=== PATIENT | female | born 1995 | race Caucasian/White ===

== ENCOUNTER 2017-11-02 10:44 | Emergency (ER) | payer SELFPAY ==
[~2017-11-02] VITALS: Ht 160 cm; Wt 108.9 kg
--- NOTE | 2017-11-02 12:34 | ED GI ---
General Chief Complaint: Rect Problems Stated Complaint: PASSING BLOOD IN STOOL,PT HAS IUD Nursing Triage Note: pt reports she had bright red bleeding from rectum last night at 2100. now has low abd discomfort. Sepsis Screen: No Definite Risk Source of Information: Patient, Other Exam Limitations: No Limitations History of Present Illness Date Seen by Provider: Nov 02, 2017 Time Seen by Provider: 12:24 Initial Comments Patient resents to ER by private conveyance with her significant other and chief complaint that since about 9:00 last night she started experiencing bright red blood clots from her rectum. She says it's not giving her vagina. Last missed her period was 2 weeks ago. She says she is having some pain in the rectum as well as her low back and her bilateral lower abdomen which she associates with her ovaries. She's not having any discharge or dysuria. She's not on any medications. She's had 2 C-sections but no other abdominal surgeries. She denies a history of hemorrhoids but she has chronic constipation. Allergies and Home Medications Allergies Coded Allergies: No Known Drug Allergies (Unverified , 11/02/17) Patient Home Medication List Home Medication List Reviewed: Yes Review of Systems Review of Systems Constitutional: No chills, No diaphoresis EENTM: No Blurred Vision, No Double Vision Respiratory: Denies Cough, Denies Shortness of Air Cardiovascular: Denies Chest Pain, Denies Edema Gastrointestinal: Denies Abdomen Distended; Abdominal Pain; Denies Constipated , Denies Diarrhea, Denies Nausea Genitourinary: Denies Burning, Denies Discharge, Denies Flank Pain Musculoskeletal: back pain; No joint pain Past Pfrzolw-Kdtnta-Kteyfq Hx Patient Social History Alcohol Use: Denies Use Recreational Drug Use: No Smoking Status: Current Everyday Smoker Type Used: Cigarettes (0.25 ppd) Recent Foreign Travel: No Contact w/Someone Who Travel: No Recent Infectious Disease Expo: No Physical Exam Vital Signs Vital Signs - First Documented 11/02/17 11:14 Temp 98.0 Pulse 49 Resp 16 B/P (MAP) 154/74 (100) Pulse Ox 97 Capillary Refill : Less Than 3 Seconds Height/Weight/BMI Height: 5'3.00" Weight: 240lbs. oz. 108.937894do; BMI Method:Stated General Appearance: WD/WN, no apparent distress HEENT: PERRL/EOMI, pharynx normal Respiratory: normal breath sounds, no respiratory distress, no accessory muscle use Cardiovascular: normal peripheral pulses, regular rate, rhythm Gastrointestinal: normal bowel sounds, soft, tenderness (bilateral lower quadrants are tender to palpation), other (. Negative for mesenteric signs or Blount's sign) Rectal: normal rectal tone; No blood streaked stool, No hemorrhoids, No mass; tenderness, other (12:00 thin, mild fissure) Extremities: normal inspection, normal capillary refill Back: normal inspection, no CVA tenderness, vertebral tenderness (lumbar midline tenderness to palpation) Neurologic/Psychiatric: alert, oriented x 3 Skin: normal color, warm/dry Progress/Results/Core Measures Results/Orders Lab Results Laboratory Tests Test 11/02/17 11:35 Range/Units Urine Color YELLOW Urine Clarity SLIGHTLY CLOUDY Urine pH 5 5-9 Urine Specific [place] 1.020 1.016-1.022 Urine Protein 2+ H NEGATIVE Urine Glucose (UA) NEGATIVE NEGATIVE Urine Ketones NEGATIVE NEGATIVE Urine Nitrite NEGATIVE NEGATIVE Urine Bilirubin NEGATIVE NEGATIVE Urine Urobilinogen NORMAL NORMAL MG/DL Urine Leukocyte Esterase 1+ H NEGATIVE Urine RBC (Auto) NEGATIVE NEGATIVE Urine RBC NONE /HPF Urine WBC 2-5 /HPF Urine Squamous Epithelial Cells 10-25 H /HPF Urine Crystals NONE /LPF Urine Bacteria FEW H /HPF Urine Casts NONE /LPF Urine Mucus LARGE H /LPF Urine Culture Indicated YES Urine Test NEGATIVE NEGATIVE My Orders Orders - MONIE CHAVIS Ua Culture If Indicated (11/02/17 12:29) Hcg,Qualitative Urine (11/02/17 12:29) Urine Culture (11/02/17 11:35) Vital Signs/I&O 11/02/17 11:14 Temp 98.0 Pulse 49 Resp 16 B/P (MAP) 154/74 (100) Pulse Ox 97 Blood Pressure Mean: 100 Urine -Bedside: Negative Departure Impression Primary Impression: Rectal fissure Disposition: 01 HOME, SELF-CARE Condition: Stable Departure-Patient Inst. Decision time for Depature: 13:39 Referrals: NO,LOCAL PHYSICIAN (PCP/Family) Primary Care Physician Patient Instructions: Anal Fissure (DC) Add. Discharge Instructions: Increase the fiber in your diet by either eating high-fiber foods or using Metamucil or other similar supplements. Use Colace for stool softening and MiraLAX as needed for constipation. For your pain you can use sitz baths as well as apply a small amount of the lidocaine cream to the rectum for relief every 2 hours as needed. Follow-up in the next 2-4 weeks with a primary care doctor to reassess the blood in the stool. If you can't get your symptoms under control you can follow- up sooner. All discharge instructions reviewed with patient and/or family. Voiced understanding. Scripts Docusate Sodium (Colace) 100 Mg Capsule 100 MG PO DAILY for 30 Days, #30 CAP 0 Refills Prov: MONIE CHAVIS 11/02/17 Psyllium Husk (Metamucil) 660 Gm Powder 660 GM PO DAILY for 30 Days, #1 EA Prov: MONIE CHAVIS 11/02/17 Lidocaine (Recticare) 15 Gm Cream..g. 1 GM TP Q4H PRN for PAIN-BREAKTHROUGH for 7 Days, #1 TUBE 0 Refills Prov: MONIE CHAVIS 11/02/17 MONIE CHAVIS Nov 02, 2017 12:34
[2017-11-02 12:37] LABS: BILIRUBIN,URINE NEGATIVE (NEGATIVE); CLARITY,URINE SLIGHTLY CLOUDY; COLOR,URINE YELLOW; GLUCOSE, URINE (UA) NEGATIVE (NEGATIVE); KETONES,URINE NEGATIVE (NEGATIVE); LEUKOCYTE ESTERASE ,URINE 1+ (NEGATIVE); NITRITE,URINE NEGATIVE (NEGATIVE); PH,URINE 5 (5-9); PROTEIN,URINE 2+ (NEGATIVE); UROBILINOGEN,URINE NORMAL (NORMAL)
[2017-11-02 12:49] LABS: BACTERIA,URINE FEW /HPF
[2017-11-02] MEDS ORDERED: PSYL660P17 PO (13:44)
[2017-11-02] MEDS ORDERED: LIDO15CR6 TP (13:44)
[2017-11-02] MEDS ORDERED: DOCU-143 PO (13:45)
[2017-11-02 14:15] VITALS: BP 150/78
== END 2017-11-02 14:16 | disposition home or self-care (01) ==
LOC: EDUNIT# 10:44 → ER 10:46
DX: K60.2 Anal fissure, unspecified (principal); F17.210 Nicotine dependence, cigarettes, uncomplicated; Z98.890 Other specified postprocedural states
CPT/HCPCS: 81000; 84703; 87088

== ENCOUNTER → 2018-01-12 | Outpatient (CLI) | payer OTHER ==
[~2018-01-12] MED LIST: DOCU-143 PO; LIDO15CR6 TP; PSYL660P17 PO
== END ==
LOC: CARD 11:04
PROVIDERS: ATTEND Nurse Practitioner Family
DX: R07.9 Chest pain, unspecified (principal); R06.02 Shortness of breath; R00.2 Palpitations; R00.1 Bradycardia, unspecified
CPT/HCPCS: 93225; 93226

== ENCOUNTER 2018-02-11 15:00 | Outpatient (CLI) | payer OTHER | END 2018-02-11 15:30 | disposition home or self-care (01) | LOC: SLEEP 15:00 | PROVIDERS: ATTEND Nurse Practitioner Family | DX: G47.10 Hypersomnia, unspecified (principal); R00.1 Bradycardia, unspecified; E66.01 Morbid (severe) obesity due to excess calories ==

== ENCOUNTER → 2018-02-20 | Outpatient (CLI) | payer OTHER ==
[~2018-02-20] MED LIST changes: +RT-ALBUTEROL SULF 2.5 MG/3 ML PRE-MIX VIAL INH ONE
== END ==
LOC: RT 12:55
PROVIDERS: ATTEND Nurse Practitioner Family
DX: G47.10 Hypersomnia, unspecified (principal); R00.2 Palpitations; E66.01 Morbid (severe) obesity due to excess calories
CPT/HCPCS: 94060; 94726; 94729

== ENCOUNTER 2018-07-10 12:34 | Emergency (ER) | payer SELFPAY ==
[~2018-07-10] VITALS: Ht 157.5 cm; Wt 115.7 kg
[~2018-07-10 12:34] MED LIST changes: -RT-ALBUTEROL SULF 2.5 MG/3 ML PRE-MIX VIAL INH ONE
--- OUTSIDE RECORDS SUMMARY | 2018-07-10 12:38 | XMS REPORT ---
Author Author JEFERSON RIGGS [facility] Address [address] [place] [address] Care Team Providers Care Event Promotions Coordinator Name Role Phone KIM RIGGSTA Unavailable PROBLEMS Type Condition ICD9-CM Code [id number]-[id number] Code Onset Dates Condition Status SNOMED Code Problem Tension headache G44.209 Active 710046035 Problem Major depressive disorder, recurrent episode, moderate F33.1 Active 121479492 Problem Dysthymia F34.1 Active 06062994 ALLERGIES No Known Allergies ENCOUNTERS Encounter Location Date Diagnosis [facility] [id number] [place] [phone] Mar, [facility] [address] [address] Feb, [facility] [id number] [place] [phone] Jan, [facility] [id number] [place] [phone] Jan, [facility] [id number] [place] [phone] Dec, BMI 40.0-44.9, adult Z68.41 and Tension headache G44.209 [facility] [id number] [place] [phone] Dec, [facility] [address] [address] 19 Dec, 2017 Major depressive disorder, recurrent episode, moderate F33.1 [facility] [id number] [place] [phone] 14 Dec, 2017 Chest pain, unspecified type R07.9 ; Shortness of breath R06.02 ; Heart palpitations R00.2 ; Sinus bradycardia R00.1 and BMI 40.0-44.9, adult Z68.41 [place] [address] [address] Dec, Major depressive disorder, recurrent episode, moderate F33.1 [place] [address] [id number] Nov, Major depressive disorder, recurrent episode, moderate F33.1 [place] [address] [address] Nov, Dysthymia F34.1 [place] [address] [address] Nov, Pelvic pain R10.2 ; Encounter for Depo-Provera contraception Z30.42 and BMI 40.0-44.9, adult Z68.41 [place] [address] [address] 26 Oct, 2017 Rash R21 and BMI 40.0-44.9, adult Z68.41 [place] [address] [address] 24 Oct, 2017 Major depressive disorder, recurrent episode, moderate F33.1 [place] [address] [address] Oct, Major depressive disorder, recurrent episode, moderate F33.1 [place] [address] [address] 18 Oct, 2017 Bradycardia R00.1 ; Dysthymia F34.1 ; Screening for STD (sexually transmitted disease) Z11.3 and BMI 40.0-44.9, adult Z68.41 IMMUNIZATIONS No Known Immunizations SOCIAL HISTORY Never Assessed REASON FOR VISIT Headache/ dizzines x3 weeks Darian Blunt MA PLAN OF CARE Activity Details Follow Up 4 Weeks if not better Reason:headaches VITAL SIGNS Height 62.75 in 2018-01-21 Weight 237.1 lbs 2018-01-21 Temperature 97.9 degrees Fahrenheit 2018-01-21 Heart Rate 62 bpm 2018-01-21 Respiratory Rate 18 2018-01-21 BMI 42.33 kg/m2 2018-01-21 Blood pressure systolic 122 mmHg 2018-01-21 Blood pressure diastolic 68 mmHg 2018-01-21 MEDICATIONS Medication Instructions Dosage Frequency Start Date End Date Duration Status Excedrin Migraine 250-250-65 MG Orally Once a day 2 tablets 24h 30 day(s) Active Prozac 20 mg Orally Once a day 1 capsule 24h 30 Active Naproxen 500 mg Orally every 12 hrs 1 tablet with food or milk as needed 12h Dec, Active Promethazine HCl 25 MG Orally every 12 hrs 1 tablet as needed 12h Dec, Active RESULTS No Results PROCEDURES No Known procedures INSTRUCTIONS MEDICATIONS ADMINISTERED No Known Medications MEDICAL (GENERAL) HISTORY Type Description Date Medical History Bradycardia Medical History Depression, unspecified depression type Medical History Stress Medical History Aortic valve defect Surgical History section x2 (2015 & 2016) Surgical History plates and screws in LT arm. 2015 Hospitalization History childbirth Hospitalization History surgery
--- OUTSIDE RECORDS SUMMARY | 2018-07-10 12:38 | XMS REPORT ---
Author Author STONEY WORRELL [facility] Address [address] [place] [address] Care Team Providers Care Roofing Tile Sorter Name Role Phone STONEY WORRELL Unavailable PROBLEMS Type Condition ICD9-CM Code [id number] Code Onset Dates Condition Status SNOMED Code Problem Tension headache G44.209 Active 133468326 Problem Major depressive disorder, recurrent episode, moderate F33.1 Active 816336416 Problem Dysthymia F34.1 Active 01734847 ALLERGIES No Information ENCOUNTERS Encounter Location Date Diagnosis [place] [id number] [place] [phone] Mar, [facility] [place] [address] [address] Feb, [facility] [place] [id number] [place] [phone] Jan, [facility] [place] [id number] [place] [address] Jan, Major depressive disorder, recurrent episode, moderate F33.1 [facility] [place] [id number] [place] [address] Dec, BMI 40.0-44.9, adult Z68.41 and Tension headache G44.209 [facility] [place] [id number] [place] [address] Dec, [facility] [place] [address] [address] Dec, Major depressive disorder, recurrent episode, moderate F33.1 [place] [id number] [place] [address] 14 Nov, 2018 Chest pain, unspecified type R07.9 ; Shortness of breath R06.02 ; Heart palpitations R00.2 ; Sinus bradycardia R00.1 and BMI 40.0-44.9, adult Z68.41 [place] [id number] [place] [phone] Dec, Major depressive disorder, recurrent episode, moderate F33.1 [place] [address] [address] Nov, Major depressive disorder, recurrent episode, moderate F33.1 [place] [address] [address] Nov, Dysthymia F34.1 [place] [address] [address] 08 Nov, 2017 Pelvic pain R10.2 ; Encounter for Depo-Provera contraception Z30.42 and BMI 40.0-44.9, adult Z68.41 [place] [id number] [place] [address] 26 Oct, 2017 Rash R21 and BMI 40.0-44.9, adult Z68.41 [place] [id number] [place] [address] 24 Oct, 2017 Major depressive disorder, recurrent episode, moderate F33.1 [place] [id number] [place] [address] Oct, Major depressive disorder, recurrent episode, moderate F33.1 [place] [id number] [place] [address] 18 Oct, 2017 Bradycardia R00.1 ; Dysthymia F34.1 ; Screening for STD (sexually transmitted disease) Z11.3 and BMI 40.0-44.9, adult Z68.41 IMMUNIZATIONS No Known Immunizations SOCIAL HISTORY Never Assessed REASON FOR VISIT f/u PLAN OF CARE Activity Details Follow Up 2 Weeks Reason: F/U VITAL SIGNS MEDICATIONS Unknown Medications RESULTS No Results PROCEDURES Procedure Date Ordered Result Body Site Psychotherapy, patient and family, 45 minutes, established patient Jan 26, 2018 INSTRUCTIONS MEDICATIONS ADMINISTERED No Known Medications MEDICAL (GENERAL) HISTORY Type Description Date Medical History Bradycardia Medical History Depression, unspecified depression type Medical History Stress Medical History Aortic valve defect Surgical History section x2 (2015 & 2016) Surgical History plates and screws in LT arm. 2015 Hospitalization History childbirth Hospitalization History surgery
--- OUTSIDE RECORDS SUMMARY | 2018-07-10 12:38 | XMS REPORT ---
Author Author JEFERSON RIGGS [facility] Address [address] [place] [address] Care Team Providers Care Mechanical Pencils Assembler Name Role Phone KIM RIGGSTA Unavailable PROBLEMS Type Condition ICD9-CM Code FHA39-RB Code Onset Dates Condition Status SNOMED Code Problem Tension headache G44.209 Active 879667194 Problem Major depressive disorder, recurrent episode, moderate F33.1 Active 963845273 Problem Dysthymia F34.1 Active 75907858 ALLERGIES No Information ENCOUNTERS Encounter Location Date Diagnosis [facility] [place] [address] [address] Mar, [facility] [place] [address] [address] Feb, [facility] [place] [id number] [place] [address] Jan, [facility] [place] [address] [address] Jan, [facility] [place] [id number] [place] [address] Dec, BMI 40.0-44.9, adult Z68.41 and Tension headache G44.209 [facility] [place] [id number] [place] [address] Dec, [facility] [place] [address] [address] 19 Dec, 2017 Major depressive disorder, recurrent episode, moderate F33.1 [facility] [place] [id number] [place] [address] 14 Dec, 2017 Chest pain, unspecified type R07.9 ; Shortness of breath R06.02 ; Heart palpitations R00.2 ; Sinus bradycardia R00.1 and BMI 40.0-44.9, adult Z68.41 [place] [address] [address] Dec, Major depressive disorder, recurrent episode, moderate F33.1 [place] [address] [address] Nov, Major depressive disorder, recurrent episode, moderate F33.1 [place] [address] [address] Nov, Dysthymia F34.1 [place] [address] [phone] 08 Nov, 2017 Pelvic pain R10.2 ; Encounter for Depo-Provera contraception Z30.42 and BMI 40.0-44.9, adult Z68.41 [place] [address] [address] 26 Oct, 2017 Rash R21 and BMI 40.0-44.9, adult Z68.41 [place] [address] [address] 24 Oct, 2017 Major depressive disorder, recurrent episode, moderate F33.1 [place] [address] [address] 19 Oct, 2017 Major depressive disorder, recurrent episode, moderate F33.1 [place] [address] [address] 18 Oct, 2017 Bradycardia R00.1 ; Dysthymia F34.1 ; Screening for STD (sexually transmitted disease) Z11.3 and BMI 40.0-44.9, adult Z68.41 IMMUNIZATIONS No Known Immunizations SOCIAL HISTORY Never Assessed REASON FOR VISIT PALS IN-Prozac PLAN OF CARE VITAL SIGNS MEDICATIONS Unknown Medications RESULTS No Results PROCEDURES No Known procedures [...]
--- OUTSIDE RECORDS SUMMARY | 2018-07-10 12:39 | XMS REPORT ---
Author Author STONEY WORRELL [facility] Address [address] [place] [address] Care Team Providers Care Lodge Attendant Name Role Phone STONEY WORRELL Unavailable PROBLEMS Type Condition ICD9-CM Code HPS46-YA Code Onset Dates Condition Status SNOMED Code Problem Major depressive disorder, recurrent episode, moderate F33.1 Active 894496507 Problem Dysthymia F34.1 Active 69000998 ALLERGIES No Information ENCOUNTERS Encounter Location Date Diagnosis [place] [address] [address] Mar, [facility] [address] [address] Feb, [facility] [address] [address] Jan, [place] [address] [address] Jan, [place] [address] [address] Dec, [facility] [address] [address] Dec, Major depressive disorder, recurrent episode, moderate F33.1 [facility] [address] [address] 14 Dec, 2017 Chest pain, unspecified type R07.9 ; Shortness of breath R06.02 ; Heart palpitations R00.2 ; Sinus bradycardia R00.1 and BMI 40.0-44.9, adult Z68.41 [place] [address] [address] Dec, Major depressive disorder, recurrent episode, moderate F33.1 [place] [address] [address] Nov, Major depressive disorder, recurrent episode, moderate F33.1 [place] [id number] [place] [address] Nov, Dysthymia F34.1 [place] [address] [address] 08 Nov, 2017 Pelvic pain R10.2 ; Encounter for Depo-Provera contraception Z30.42 and BMI 40.0-44.9, adult Z68.41 [place] [id number] [place], [place] [address] 26 Oct, 2017 Rash R21 and BMI 40.0-44.9, adult Z68.41 [place] [id number] [place] [address] 24 Oct, 2017 Major depressive disorder, recurrent episode, moderate F33.1 [place] [id number] [place] [address] Oct, Major depressive disorder, recurrent episode, moderate F33.1 [place] [address] [place] [address] 18 Oct, 2017 Bradycardia R00.1 ; Dysthymia F34.1 ; Screening for STD (sexually transmitted disease) Z11.3 and BMI 40.0-44.9, adult Z68.41 IMMUNIZATIONS No Known Immunizations SOCIAL HISTORY Never Assessed REASON FOR VISIT BH f/u PLAN OF CARE Activity Details Follow Up 2 Weeks Reason: F/U VITAL SIGNS MEDICATIONS Unknown Medications RESULTS No Results PROCEDURES Procedure Date Ordered Result Body Site Psychotherapy, patient &/family, 45 minutes, established patient Jan 12, 2018 INSTRUCTIONS MEDICATIONS ADMINISTERED No Known Medications MEDICAL (GENERAL) HISTORY Type Description Date Medical History Bradycardia Medical History Depression, unspecified depression type Medical History Stress Medical History Aortic valve defect Surgical History section x2 (2015 & 2017) Surgical History plates and screws in LT arm. 2015 Hospitalization History childbirth Hospitalization History surgery
--- OUTSIDE RECORDS SUMMARY | 2018-07-10 12:39 | XMS REPORT ---
Author Author JEFERSON RIGGS [facility] Address [address] [place] [address] Care Team Providers Care Restaurant Manager Name Role Phone JEFERSON RIGGS Unavailable PROBLEMS Type Condition ICD9-CM Code VTZ54-PD Code Onset Dates Condition Status SNOMED Code Problem Major depressive disorder, recurrent episode, moderate F33.1 Active 016485332 Problem Dysthymia F34.1 Active 83297203 ALLERGIES No Known Allergies ENCOUNTERS Encounter Location Date Diagnosis [facility] [id number] [place] [phone] Dec, [facility] [address] [address] Dec, [facility] [id number] [place] [address] Dec, [facility] [address] [address] Nov, [facility] [id number] [place] [address] Nov, [facility] [id number] [place] [address] Oct, Rash R21 and BMI 40.0-44.9, adult Z68.41 [facility] [id number] [place] [address] Oct, Major depressive disorder, recurrent episode, moderate F33.1 [facility] [id number] [place] [address] Oct, Major depressive disorder, recurrent episode, moderate F33.1 [facility] [id number] [place] [address] Oct, Bradycardia R00.1 ; Dysthymia F34.1 ; Screening for STD (sexually transmitted disease) Z11.3 and BMI 40.0-44.9, adult Z68.41 IMMUNIZATIONS No Known Immunizations SOCIAL HISTORY Never Assessed REASON FOR VISIT Rash from Medication/Noticed a rash on neck and back 2 days after starting proza c-[facility] DATA SECURITY CONSULTANT/STRUCTURES ASSEMBLER PLAN OF CARE Activity Details Follow Up prn Reason: VITAL SIGNS Height 62.75 in 2017-11-19 Weight 239 lbs 2017-11-19 Temperature 98 degrees Fahrenheit 2017-11-19 Heart Rate 82 bpm 2017-11-19 Respiratory Rate 20 2017-11-19 BMI 42.67 kg/m2 2017-11-19 Blood pressure systolic 120 mmHg 2017-11-19 Blood pressure diastolic 74 mmHg 2017-11-19 MEDICATIONS Medication Instructions Dosage Frequency Start Date End Date Duration Status Prozac 20 mg Orally Once a day 1 capsule 24h Oct, 30 day(s) Active RESULTS No Results PROCEDURES No Known [...]
--- OUTSIDE RECORDS SUMMARY | 2018-07-10 12:39 | XMS REPORT ---
Author Author STONEY WORRELL [facility] Address [address] [place] [address] Care Team Providers Care Thermite Welder Name Role Phone STONEY WORRELL Unavailable PROBLEMS Type Condition ICD9-CM Code MIN00-SE Code Onset Dates Condition Status SNOMED Code Problem Major depressive disorder, recurrent episode, moderate F33.1 Active 768872021 Problem Dysthymia F34.1 Active 06492909 ALLERGIES No Information ENCOUNTERS Encounter Location Date Diagnosis [facility] [id number] [place] [phone] Jan, [facility] [address] [address] Jan, [facility] [id number] [place] [phone] Dec, [facility] [address] [address] Dec, [facility] [id number] [place] [address] Dec, Major depressive disorder, recurrent episode, moderate F33.1 [facility] [id number] [place] [address] Nov, Major depressive disorder, recurrent episode, moderate F33.1 [facility] [address] [address] Nov, Dysthymia F34.1 [facility] [id number] [place] [address] Nov, Pelvic pain R10.2 ; Encounter for Depo-Provera contraception Z30.42 and BMI 40.0-44.9, adult Z68.41 [place] [id number] [address] 26 Oct, 2017 Rash R21 and BMI 40.0-44.9, adult Z68.41 [place] [address] [address] 24 Oct, 2017 Major depressive disorder, recurrent episode, moderate F33.1 [place] [address] [place] [address] 19 Oct, 2017 Major depressive disorder, recurrent episode, moderate F33.1 [place] [address] [place] [address] 18 Oct, 2017 Bradycardia R00.1 ; Dysthymia [...] Psychotherapy, patient &/family, 45 minutes, established patient Dec 29, 2017 INSTRUCTIONS MEDICATIONS ADMINISTERED No Known Medications MEDICAL (GENERAL) HISTORY Type Description Date Medical History Bradycardia Medical History Depression, unspecified depression type Medical History Stress Medical History Aortic valve defect Surgical History section x2 (2015 & 2016) Surgical History plates and screws in LT arm. 2015 Hospitalization History childbirth Hospitalization History surgery
--- OUTSIDE RECORDS SUMMARY | 2018-07-10 12:39 | XMS REPORT ---
Author Author JEFERSON RIGGS [facility] Address [address] [place] [address] Care Team Providers Care It Architecture Analyst Name Role Phone JEFERSON RIGGS Unavailable PROBLEMS ALLERGIES No Known Allergies ENCOUNTERS IMMUNIZATIONS No Known Immunizations SOCIAL HISTORY No smoking Hx information available REASON FOR VISIT PLAN OF CARE VITAL SIGNS MEDICATIONS RESULTS No Results PROCEDURES INSTRUCTIONS MEDICATIONS ADMINISTERED No Known Medications MEDICAL (GENERAL) HISTORY
--- OUTSIDE RECORDS SUMMARY | 2018-07-10 12:39 | XMS REPORT ---
Author Author STONEY WORRELL [facility] Address [address] [place] [address] Care Team Providers Care Correctional Officer Chief Name Role Phone STONEY WORRELL Unavailable PROBLEMS ALLERGIES No Information ENCOUNTERS IMMUNIZATIONS No Known Immunizations SOCIAL HISTORY No smoking Hx information available REASON FOR VISIT PLAN OF CARE VITAL SIGNS MEDICATIONS Unknown Medications RESULTS No Results PROCEDURES INSTRUCTIONS MEDICATIONS ADMINISTERED No Known Medications MEDICAL (GENERAL) HISTORY
--- OUTSIDE RECORDS SUMMARY | 2018-07-10 12:39 | XMS REPORT | Continuity of Care Document ---
Author Organization Unknown Address Unknown Allergies There is no data. Medications There is no data. Problems There is no data. Procedures There is no data. Results Test Result Range CBC - 11/11/17 11:34 WHITE BLOOD CELL COUNT 7.3 Thousand/uL 3.8-10.8 RED BLOOD CELL COUNT 5.18 Million/uL 3.80-5.10 HEMOGLOBIN 13.9 g/dL 11.7-15.5 HEMATOCRIT 43.0 % 35.0-45.0 MCV 83.0 fL 80.0-100.0 MCH 26.8 pg 27.0-33.0 MCHC 32.3 g/dL 32.0-36.0 RDW 14.9 % 11.0-15.0 PLATELET COUNT 336 Thousand/uL 140-400 MPV 9.9 fL 7.5-12.5 ABSOLUTE NEUTROPHILS 4329 cells/uL 4240-0870 ABSOLUTE LYMPHOCYTES 2329 cells/uL 850-3900 ABSOLUTE MONOCYTES 504 cells/uL 200-950 ABSOLUTE EOSINOPHILS 102 cells/uL 15-500 ABSOLUTE BASOPHILS 37 cells/uL 0-200 NEUTROPHILS 59.3 % NRG LYMPHOCYTES 31.9 % NRG MONOCYTES 6.9 % NRG EOSINOPHILS 1.4 % NRG BASOPHILS 0.5 % NRG TSH - 11/11/17 11:34 TSH 1.69 mIU/L NRG Encounters ACCT No. Visit Date/Time Discharge Status Pt. Type Provider Facility Loc./Unit Complaint [id number] 06/16/2018 13:00:00 06/16/2018 23:59:59 CLS Outpatient JEFERSON RIGGS [facility] [id number] 11/11/2017 10:00:00 Document Registration
--- OUTSIDE RECORDS SUMMARY | 2018-07-10 12:39 | XMS REPORT ---
Author Author STONEY WORRELL [facility] Address [address] [place] [address] Care Team Providers Care Case Worker Name Role Phone STONEY WORRELL Unavailable PROBLEMS Type Condition ICD9-CM Code [id number] Code Onset Dates Condition Status SNOMED Code Problem Major depressive disorder, recurrent episode, moderate F33.1 Active 918766077 Problem Dysthymia F34.1 Active 52791279 ALLERGIES No Information ENCOUNTERS Encounter Location Date Diagnosis [facility] [id number] [place] [address] Dec, [facility] [address] [address] Dec, [facility] [id number] [place] [address] Dec, [facility] [address] [address] Nov, [facility] [id number] [place] [address] Nov, [facility] [id number] [place] [address] Oct, Rash R21 and BMI 40.0-44.9, [address] [facility] [id number] [place] [address] Oct, Major depressive disorder, recurrent episode, moderate F33.1 [facility] [id number] [place] [address] Oct, Major depressive disorder, recurrent episode, moderate F33.1 [facility] [id number] [place] [address] Oct, Bradycardia R00.1 ; Dysthymia F34.1 ; Screening for STD (sexually transmitted disease) Z11.3 and BMI 40.0-44.9, adult Z68.41 IMMUNIZATIONS No Known Immunizations SOCIAL HISTORY Never Assessed REASON FOR VISIT intake PLAN OF CARE Activity Details Follow Up Next Available Reason: F/U VITAL SIGNS MEDICATIONS Medication Instructions Dosage Frequency Start Date End Date Duration Status Prozac 20 mg Orally Once a day 1 capsule 24h Oct, 30 day(s) Active RESULTS No Results PROCEDURES Procedure Date Ordered Result Body Site Psych diagnostic evaluation, established patient Nov 12, 2017 INSTRUCTIONS MEDICATIONS ADMINISTERED No Known Medications MEDICAL (GENERAL) HISTORY Type Description Date Medical History Bradycardia Medical History Depression, unspecified depression type Medical History Stress Medical History Aortic valve defect Surgical History section x2 (2015 & 2016) Surgical History plates and screws in LT arm. 2015 Hospitalization History childbirth Hospitalization History surgery
--- OUTSIDE RECORDS SUMMARY | 2018-07-10 12:39 | XMS REPORT ---
Author Author KING JEFERSON [facility] Address [address] [place] [address] Care Team Providers Care Bed Setter Name Role Phone JEFERSON RIGGS Unavailable PROBLEMS Type Condition ICD9-CM Code [id number] Code Onset Dates Condition Status SNOMED Code Problem Major depressive disorder, recurrent episode, moderate F33.1 Active 178217375 Problem Dysthymia F34.1 Active 36629232 ALLERGIES No Information ENCOUNTERS Encounter Location Date Diagnosis [place] [address] [address] Dec, [place] [address] [address] Dec, [facility] [address] [address] Dec, [facility] [address] [address] Nov, [place] [address] [id number] [place] [address] Nov, Dysthymia F34.1 [facility] [address] [address] 08 Nov, 2017 Pelvic pain R10.2 ; Encounter for Depo-Provera contraception Z30.42 and BMI 40.0-44.9, adult Z68.41 [facility] [address] [address] 26 Oct, 2017 Rash R21 and BMI 40.0-44.9, adult Z68.41 [facility] [address] [address] 24 Oct, 2017 Major depressive disorder, recurrent episode, moderate F33.1 [facility] [address] [facility] [id number] [place] [address] Oct, Major depressive disorder, recurrent episode, moderate F33.1 [facility] [address] [facility] [id number] [place] [address] Oct, Bradycardia R00.1 ; Dysthymia F34.1 ; Screening for STD (sexually transmitted disease) Z11.3 and BMI 40.0-44.9, adult Z68.41 IMMUNIZATIONS No Known Immunizations SOCIAL HISTORY Never Assessed REASON FOR VISIT PALS PLAN OF CARE VITAL SIGNS MEDICATIONS Medication Instructions Dosage Frequency Start Date End Date Duration Status Prozac 20 mg Orally Once a day 1 capsule 24h Oct, 90 days Active RESULTS No Results PROCEDURES No Known [...]
--- OUTSIDE RECORDS SUMMARY | 2018-07-10 12:39 | XMS REPORT ---
Author Author STONEY WORRELL [facility] Address [address] [place] [address] Care Team Providers Care Superintendent Transportation Name Role Phone STONEY WORRELL Unavailable PROBLEMS Type Condition ICD9-CM Code [id number] Code Onset Dates Condition Status SNOMED Code Problem Major depressive disorder, recurrent episode, moderate F33.1 Active 230720997 Problem Dysthymia F34.1 Active 29768629 ALLERGIES No Information ENCOUNTERS Encounter Location Date Diagnosis [place] [id number] [place] [address] Jan, [place] [address] [address] Jan, [facility] [id number] [place] [address] Dec, [facility] [address] [address] Dec, [place] [id number] [place] [address] Dec, [facility] [address] [address] Nov, Major depressive disorder, recurrent episode, moderate F33.1 [facility] [id number] [place] [address] Nov, Dysthymia F34.1 [place] [id number] [place] [address] 08 Nov, 2017 Pelvic pain R10.2 ; Encounter for Depo-Provera contraception Z30.42 and BMI 40.0-44.9, adult Z68.41 [place] [address], [place] [address] 26 Oct, 2017 Rash R21 and BMI 40.0-44.9, adult Z68.41 [place] [id number] [address] 24 Oct, 2017 Major depressive disorder, recurrent episode, moderate F33.1 [place] [address] [place] [address] 19 Oct, 2017 Major depressive disorder, recurrent episode, moderate F33.1 [place] [id number] [address] 18 Oct, 2017 Bradycardia R00.1 ; Dysthymia [...] patient &/family, 45 minutes, established patient Dec 15, 2017 INSTRUCTIONS MEDICATIONS ADMINISTERED No Known Medications MEDICAL (GENERAL) HISTORY Type Description Date Medical History Bradycardia Medical History Depression, unspecified depression type Medical History Stress Medical History Aortic valve defect Surgical History section x2 (2015 & 2016) Surgical History plates and screws in LT arm. 2015 Hospitalization History childbirth Hospitalization History surgery
--- OUTSIDE RECORDS SUMMARY | 2018-07-10 12:39 | XMS REPORT ---
Author Author JACLYN RO [facility] Address [address] [place] [address] Care Team Providers Care Numerical Control Router Operator Name Role Phone JACLYN RO Unavailable PROBLEMS Type Condition ICD9-CM Code [id number] Code Onset Dates Condition Status SNOMED Code Problem Major depressive disorder, recurrent episode, moderate F33.1 Active 106487864 Problem Dysthymia F34.1 Active 81552123 ALLERGIES No Known Allergies ENCOUNTERS Encounter Location Date Diagnosis [place] [id number] [address] Mar, [place] [address] [address] Jan, [place] [address] [address] Jan, [place] [address] [address] Dec, [place] [id number] [place] [address] Dec, [place] [address] [address] 14 Dec, 2017 Chest pain, unspecified type R07.9 ; Shortness of breath R06.02 ; Heart palpitations R00.2 ; Sinus bradycardia R00.1 and BMI 40.0-44.9, adult Z68.41 [place] [address] [address] 05 Dec, 2017 Major depressive disorder, recurrent episode, moderate F33.1 [place] [address] [address] Nov, Major depressive disorder, recurrent episode, moderate F33.1 [place] [address] [place] [address] Nov, Dysthymia F34.1 [place] [id number] [place] [address] 08 Nov, 2017 Pelvic pain R10.2 ; Encounter for Depo-Provera contraception Z30.42 and BMI 40.0-44.9, adult Z68.41 [place] [id number] [place] [address] 26 Oct, 2017 Rash R21 and BMI 40.0-44.9, adult Z68.41 [place] [address] [place] [address] [address] 24 Oct, 2017 Major depressive disorder, recurrent episode, moderate F33.1 [place] [address] [address] 19 Oct, 2017 Major depressive disorder, recurrent episode, moderate F33.1 [place] [id number] [place] [address] 18 Oct, 2017 Bradycardia R00.1 ; Dysthymia F34.1 ; Screening for STD (sexually transmitted disease) Z11.3 and BMI 40.0-44.9, adult Z68.41 IMMUNIZATIONS No Known Immunizations SOCIAL HISTORY Never Assessed REASON FOR VISIT Bradycardia (last seen Cardiology 11 years ago) PLAN OF CARE Activity Details Follow Up 3 Months Reason: Pending Test Holter Test Pending Test Stress Echo Pending Test Echo 2D VITAL SIGNS Height 62.75 in 2018-01-07 Weight 238 lbs 2018-01-07 Heart Rate 46 bpm 2018-01-07 Respiratory Rate 18 2018-01-07 Oximetry 98 % 2018-01-07 BMI 42.49 kg/m2 2018-01-07 Blood pressure systolic 122 mmHg 2018-01-07 Blood pressure diastolic 74 mmHg 2018-01-07 MEDICATIONS Medication Instructions Dosage Frequency Start Date End Date Duration Status Prozac 20 mg Orally Once a day 1 capsule 24h 30 Active RESULTS No Results PROCEDURES No Known [...]
--- OUTSIDE RECORDS SUMMARY | 2018-07-10 12:39 | XMS REPORT ---
Author Author SHAMEKA MIDDLETON [facility] Address [address] [place] [address] Care Team Providers Care Riding Double Name Role Phone SHAMEKA MIDDLETON Unavailable PROBLEMS Type Condition ICD9-CM Code [id number] Code Onset Dates Condition Status SNOMED Code Problem Major depressive disorder, recurrent episode, moderate F33.1 Active 776101860 Problem Dysthymia F34.1 Active 59583660 ALLERGIES No Known Allergies ENCOUNTERS Encounter Location Date Diagnosis [place] [id number] [address] Dec, [facility] [address] [address] Dec, [facility] [address] [address] Dec, [place] [address] [address] Nov, [place] [id number] [place] [address] Nov, Dysthymia F34.1 [place] [address] [address] 08 Nov, 2017 Pelvic pain R10.2 ; Encounter for Depo-Provera contraception Z30.42 and BMI 40.0-44.9, adult Z68.41 [facility] [address] [address] 26 Oct, 2017 Rash R21 and BMI 40.0-44.9, adult Z68.41 [place] [address] [address] Oct, Major depressive disorder, recurrent episode, moderate F33.1 [facility] [address] [facility] [id number] [place] [address] 19 Oct, 2017 Major depressive disorder, recurrent episode, moderate F33.1 [facility] [address] [facility] [id number] [place] [address] 18 Oct, 2017 Bradycardia R00.1 ; Dysthymia F34.1 ; Screening for STD (sexually transmitted disease) Z11.3 and BMI 40.0-44.9, adult Z68.41 IMMUNIZATIONS Vaccine Route Administration Date Status DEPO PROVERA (150 MG/ML) IM Intramuscular Dec 01, 2017 Administered SOCIAL HISTORY Never Assessed REASON FOR VISIT IUD Removal(Mirena)-----DBennettRN, would like to talk about other control , interested in tubal, difficulty affording PLAN OF CARE Activity Details Follow Up 3 months/1 year Reason:BC Future/Pending Procedure IUD REMOVAL VITAL SIGNS Height 62.75 in 2017-12-01 Weight 238 lbs 2017-12-01 Temperature 98.0 degrees Fahrenheit 2017-12-01 Heart Rate 70 bpm 2017-12-01 Respiratory Rate 20 2017-12-01 BMI 42.49 kg/m2 2017-12-01 Blood pressure systolic 112 mmHg 2017-12-01 Blood pressure diastolic 72 mmHg 2017-12-01 MEDICATIONS Medication Instructions Dosage Frequency Start Date End Date Duration Status Prozac 20 mg Orally Once a day 1 capsule 24h Oct, 30 day(s) Active RESULTS Name Result Date Reference Range TEST, URINE (IN HOUSE) 2017-12-01 RESULTS Neg Lot # [id number] Control + Exp date 05/2019 PROCEDURES Procedure Date Ordered Result Body Site URINE TEST Dec 01, 2017 DEPO PROVERA (150 MG/ML) Dec 01, 2017 REMOVE INTRAUTERINE DEVICE Dec 01, 2017 THER/PROPH/DIAG INJ, SC/IM Dec 01, 2017 INSTRUCTIONS MEDICATIONS ADMINISTERED No Known Medications MEDICAL (GENERAL) HISTORY Type Description Date Medical History Bradycardia Medical History Depression, unspecified depression type Medical History Stress Medical History Aortic valve defect Surgical History section x2 (2015 & 2017) Surgical History plates and screws in LT arm. 2015 Hospitalization History childbirth Hospitalization History surgery
[2018-07-10] MEDS ORDERED: fentaNYL INJECTION 100 MCG/2 ML AMP IVP ONE (14:00)
[2018-07-10 14:08] LABS: BILIRUBIN,URINE NEGATIVE (NEGATIVE); CLARITY,URINE CLEAR; COLOR,URINE YELLOW; GLUCOSE, URINE (UA) NEGATIVE (NEGATIVE); KETONES,URINE NEGATIVE (NEGATIVE); LEUKOCYTE ESTERASE ,URINE 1+ (NEGATIVE); NITRITE,URINE NEGATIVE (NEGATIVE); PH,URINE 5 (5-9); PROTEIN,URINE 1+ (NEGATIVE); UROBILINOGEN,URINE NORMAL (NORMAL)
[2018-07-10 14:21] LABS: BACTERIA,URINE NEGATIVE /HPF; WBC,URINE RARE /HPF
[2018-07-10 14:27] LABS: BASOPHILS % (AUTO) 0 % (0-10); EOSINOPHILS # (AUTO) 0.1 10^3/uL (0.0-0.3); EOSINOPHILS % (AUTO) 1 % (0-10); HEMATOCRIT 41 % (35-52); HEMOGLOBIN 14.2 G/DL (11.5-16.0); LYMPHOCYTES # (AUTO) 2.8 X 10^3 (1.0-4.0); LYMPHOCYTES % (AUTO) 35 % (12-44); MEAN CORPUSCULAR HEMOGLOBIN 28 PG (25-34); MEAN CORPUSCULAR HGB CONC 35 G/DL (32-36); MEAN CORPUSCULAR VOLUME 81 FL (80-99); MEAN PLATELET VOLUME 9.5 FL (7.4-10.4); MONOCYTES # (AUTO) 0.7 X 10^3 (0.0-1.0); MONOCYTES % (AUTO) 9 % (0-12); NEUTROPHILS # (AUTO) 4.4 X 10^3 (1.8-7.8); NEUTROPHILS % (AUTO) 55 % (42-75); PLATELET COUNT 328 10^3/uL (130-400); RED CELL DISTRIBUTION WIDTH 13.8 % (10.0-14.5); WHITE BLOOD COUNT 8.1 10^3/uL (4.3-11.0)
--- NOTE | 2018-07-10 14:32 | ED Back Pain ---
General Chief Complaint: Back Problems Stated Complaint: LOWER BACK PAIN Nursing Triage Note: Ambulatory to triage. Pt reports middle and lower back pain that began on Friday. Pt denies injury. Pt denies taking anything for pain and has not seen PCP. Pt c/o urinary frequency and constipation. Nursing Sepsis Screen: No Definite Risk Source of Information: Patient, Family Exam Limitations: No Limitations History of Present Illness Date Seen by Provider: July 10, 2018 Time Seen by Provider: 14:22 Initial Comments This 22-year-old white female presents complaining of severe back pain that began in the evening 3 days ago. The patient denies trauma to the area. There is no associated dysuria, frequency, hematuria, nausea or vomiting, diarrhea or constipation, fever or chills, associated cough or shortness of breath, chest pain or palpitations, or similar episodes in the past. Patient's a female. Allergies and Home Medications Allergies Coded Allergies: No Known Drug Allergies (Unverified , 11/02/17) Patient Home Medication List Home Medication List Reviewed: Yes Review of Systems Constitutional: No chills EENTM: No ear pain, No blurred vision Respiratory: No cough Cardiovascular: No chest pain Gastrointestinal: No abdominal pain, No melena, No nausea, No vomiting Genitourinary: No dysuria, No frequency : No Musculoskeletal: see HPI, back pain Skin: No change in color Psychiatric/Neurological: No Symptoms Reported All Other Systems Reviewed Negative Unless Noted: Yes Past Tvdggfz-Zitlbw-Qrlomf Hx Past Med/Social Hx: Reviewed Nursing Past Med/Soc Hx Patient Social History Alcohol Use: Rarely Uses Recreational Drug Use: No Smoking Status: Never a Smoker Type Used: Cigarettes 2nd Hand Smoke Exposure: No Recent Foreign Travel: No Contact w/Someone Who Travel: No Recent Infectious Disease Expo: No Recent Hopitalizations: No Seasonal Allergies Seasonal Allergies: No Past Medical History Surgeries: Yes Section, Orthopedic Respiratory: No Cardiac: Yes ( bradycardia) Headaches /Migraines Genitourinary: No Gastrointestinal: No Musculoskeletal: No Endocrine: No HEENT: No Cancer: No Psychosocial: Yes Anxiety, Depression Integumentary: No Blood Disorders: No Adverse Reaction/Blood Tranf: No Physical Exam Vital Signs Vital Signs - First Documented 07/10/18 12:47 Temp 98.2 Pulse 45 Resp 18 B/P (MAP) 138/81 (100) Pulse Ox 97 O2 Delivery Room Air Capillary Refill : Less Than 3 Seconds Height, Weight, BMI Height: 5'2.00" Weight: 255lbs. oz. 115.149966tz; BMI Method:Stated General Appearance: WD/WN, Mild Distress HEENT: Normal ENT Inspection Neck: Normal Inspection Cardiovascular: Regular Rate, Rhythm Respiratory: Chest Non Tender, Lungs Clear Gastrointestinal: Normal Bowel Sounds, Non Tender, Soft Back: Normal Inspection, No CVA Tenderness, Muscle Spasm (over the paravertebral muscles.) Extremity: No Calf Tenderness Neurologic/Psychiatric: Alert, Oriented x3, No Motor/Sensory Deficits, Normal Mood/Affect Skin: Normal Color, Warm/Dry Progress/Results/Core Measures Results/Orders Lab Results Laboratory Tests Test 07/10/18 12:57 07/10/18 14:20 Range/Units Urine Color YELLOW Urine Clarity CLEAR Urine pH 5 5-9 Urine Specific [place] 1.015 L 1.016-1.022 Urine Protein 1+ H NEGATIVE Urine Glucose (UA) NEGATIVE NEGATIVE Urine Ketones NEGATIVE NEGATIVE Urine Nitrite NEGATIVE NEGATIVE Urine Bilirubin NEGATIVE NEGATIVE Urine Urobilinogen NORMAL NORMAL MG/DL Urine Leukocyte Esterase 1+ H NEGATIVE Urine RBC (Auto) NEGATIVE NEGATIVE Urine RBC NONE /HPF Urine WBC RARE /HPF Urine Squamous Epithelial Cells 2-5 /HPF Urine Crystals NONE /LPF Urine Bacteria NEGATIVE /HPF Urine Casts NONE /LPF Urine Mucus NEGATIVE /LPF Urine Culture Indicated NO White Blood Count 8.1 4.3-11.0 10^3/uL Red Blood Count 5.04 4.35-5.85 10^6/uL Hemoglobin 14.2 11.5-16.0 G/DL Hematocrit 41 35-52 % Mean Corpuscular Volume 81 80-99 FL Mean Corpuscular Hemoglobin 28 25-34 PG Mean Corpuscular Hemoglobin Concent 35 32-36 G/DL Red Cell Distribution Width 13.8 10.0-14.5 % Platelet Count 328 130-400 10^3/uL Mean Platelet Volume 9.5 7.4-10.4 FL Neutrophils (%) (Auto) 55 42-75 % Lymphocytes (%) (Auto) 35 12-44 % Monocytes (%) (Auto) 9 0-12 % Eosinophils (%) (Auto) 1 0-10 % Basophils (%) (Auto) 0 0-10 % Neutrophils # (Auto) 4.4 1.8-7.8 X 10^3 Lymphocytes # (Auto) 2.8 1.0-4.0 X 10^3 Monocytes # (Auto) 0.7 0.0-1.0 X 10^3 Eosinophils # (Auto) 0.1 0.0-0.3 10^3/uL Basophils # (Auto) 0.0 0.0-0.1 10^3/uL Sodium Level 140 135-145 MMOL/L Potassium Level 3.2 L 3.6-5.0 MMOL/L Chloride Level 106 98-107 MMOL/L Carbon Dioxide Level 22 21-32 MMOL/L Anion Gap 12 5-14 MMOL/L Blood Urea Nitrogen 9 7-18 MG/DL Creatinine 0.69 0.60-1.30 MG/DL Estimat Glomerular Filtration Rate > 60 BUN/Creatinine Ratio 13 Glucose Level 88 70-105 MG/DL Calcium Level 9.3 8.5-10.1 MG/DL Corrected Calcium 9.1 8.5-10.1 MG/DL Total Bilirubin 0.3 0.1-1.0 MG/DL Aspartate Amino Transf (AST/SGOT) 20 5-34 U/L Alanine Aminotransferase (ALT/SGPT) 31 0-55 U/L Alkaline Phosphatase 63 40-136 U/L Total Protein 7.1 6.4-8.2 GM/DL Albumin 4.2 3.2-4.5 GM/DL Lipase 13 8-78 U/L My Orders Orders - DINORA AVINA MD Cbc With Automated Diff (07/10/18 13:54) Comprehensive Metabolic Panel (07/10/18 13:54) Ua Culture If Indicated (07/10/18 13:54) Fentanyl Injection (Sublimaze Injection (07/10/18 14:00) Lipase (07/10/18 13:56) Ct Lumbar Spine Wo (07/10/18 13:54) Medications Given in ED Current Medications Medications Dose Ordered Sig/Jana Route Start Time Stop Time Status Last Admin Dose Admin Fentanyl Citrate 50 mcg ONCE ONCE IVP 07/10/18 14:00 07/10/18 14:01 DC 07/10/18 14:38 50 MCG Vital Signs/I&O 07/10/18 12:47 Temp 98.2 Pulse 45 Resp 18 B/P (MAP) 138/81 (100) Pulse Ox 97 O2 Delivery Room Air Blood Pressure Mean: 100 Progress Progress Note : Time: 15:50 Progress Note The patient's CT of the lumbar spine, urinalysis, and CBC were all unremarkable. Patient was significantly improved with 50 g of fentanyl IV. Discussed the findings with the patient and she agreed to follow-up with her caregiver closely on Friday. I invited her to return to the emergency department if she had any further problems or questions. Departure Impression Primary Impression: Back pain Qualified Codes: M54.5 - Low back pain Disposition: HOME, SELF-CARE Condition: Improved Departure-Patient Inst. Decision time for Depature: 15:51 Referrals: [facility] (PCP) Primary Care Physician JEFERSON RIGGS APRN (Family) Primary Care Physician Patient Instructions: Low Back Pain (DC) Add. Discharge Instructions: Ultram and Flexeril for pain and spasm. Close follow-up with your healthcare or medical on Friday. Return if any problems or questions. All discharge instructions reviewed with patient and/or family. Voiced understanding. Scripts Cyclobenzaprine HCl (Cyclobenzaprine HCl) 10 Mg Tablet 10 MG PO Q8H PRN for SPASMS, #15 TAB 0 Refills Prov: DINORA AVINA MD 07/10/18 Tramadol HCl (Ultram) 50 Mg Tablet 50 MG PO Q4H PRN for PAIN-MODERATE, #20 TAB Prov: DINORA AVINA MD 07/10/18 DINORA AVINA MD July 10, 2018 14:32
[2018-07-10 14:47] LABS: ALANINE AMINOTRANSFERASE 31 U/L (0-55); ALBUMIN 4.2 GM/DL (3.2-4.5); ALKALINE PHOSPHATASE 63 U/L (40-136); BILIRUBIN,TOTAL 0.3 MG/DL (0.1-1.0); BUN/CREATININE RATIO 13; CALCIUM 9.3 MG/DL (8.5-10.1); CARBON DIOXIDE 22 MMOL/L (21-32); CHLORIDE 106 MMOL/L (98-107); CREATININE SERUM 0.69 MG/DL (0.60-1.30); GFR ESTIMATED > 60; GLUCOSE 88 MG/DL (70-105); LIPASE 13 U/L (8-78); POTASSIUM 3.2 MMOL/L (3.6-5.0); SODIUM 140 MMOL/L (135-145); TOTAL PROTEIN 7.1 GM/DL (6.4-8.2)
--- NOTE | 2018-07-10 14:57 | Diagnostic Imaging Report ---
PROCEDURE: CT lumbar spine without contrast. TECHNIQUE: Multiple contiguous axial images were obtained through the lumbar spine without the use of intravenous contrast. Sagittal and coronal reformations were then performed. Auto Exposure Controls were utilized during the CT exam to meet ALARA standards for radiation dose reduction. INDICATION: Middle and lower back pain beginning several days ago. No known injury. Urinary frequency and constipation. CORRELATION STUDY: None. FINDINGS: Very minimal leftward curvature of the superior to mid lumbar spine. Alignment is otherwise relatively anatomic. Transitional anatomy with lumbarization at the S1 level. Lumbar vertebral body heights are maintained. No high degree narrowing of the canal and/or foramina. [place] large disc protrusion does not appear to be suggested on CT imaging. No osseous narrowing of the spinal canal. Paraspinal soft tissues appear unremarkable. Visualized portion of the abdominal aorta as well as kidneys are unremarkable. IMPRESSION: Unremarkable examination of the lumbar spine. Dictated by: Dictated on workstation # [id number]
[2018-07-10] MEDS ORDERED: CYCL10TA9 PO (15:54)
[2018-07-10] MEDS ORDERED: TRAM-42 PO (15:54)
[2018-07-10 16:05] VITALS: BP 138/81
== END 2018-07-10 16:05 | disposition home or self-care (01) ==
LOC: EDUNIT# 12:34 → ER 12:35
DX: M54.5 Low back pain (principal); G43.909 Migraine, unspecified, not intractable, without status migrainosus; F32.9 Major depressive disorder, single episode, unspecified; F41.9 Anxiety disorder, unspecified; Z98.890 Other specified postprocedural states
CPT/HCPCS: 36415; 72131; 80053; 81000; 83690; 85025

== ENCOUNTER 2018-07-27 17:30 | Emergency (ER) | payer SELFPAY ==
[~2018-07-27] VITALS: Ht 157.5 cm; Wt 115.7 kg
[~2018-07-27 17:30] MED LIST changes: +CYCL10TA9 PO; +TRAM-42 PO
[2018-07-27] MEDS ORDERED: IBUPROFEN 800 MG (MOTRIN) TAB PO ONE (19:00)
--- NOTE | 2018-07-27 19:07 | Diagnostic Imaging Report ---
INDICATION: Fall with right knee pain. AP, oblique, and lateral views of the right knee are obtained. FINDINGS: No fracture or acute bony abnormality is seen. There is no joint effusion. There is no significant degenerative change. IMPRESSION: Negative right knee. Dictated by: Dictated on workstation # [id number]
--- NOTE | 2018-07-27 19:16 | ED Lower Extremity ---
General Chief Complaint: Lower Extremity Stated Complaint: R KNEE PAIN Nursing Triage Note: Pt amb to triage with c/o rt knee pain for approx 4-5 months. Pt reports increase in pain throughout this past week. Reports to have fallen approx 4-5 months ago and has been experiencing discomfort since. Reports increase in discomfort behind knee cap when bending knee. Pt noted to be wearing brace to rt knee. Nursing Sepsis Screen: No Definite Risk Source: patient Exam Limitations: no limitations History of Present Illness Date Seen by Provider: Jul 27, 2018 Time Seen by Provider: 19:00 Allergies and Home Medications Allergies Coded Allergies: No Known Drug Allergies (Unverified , 11/02/17) Home Medications Cyclobenzaprine HCl 10 Mg Tablet, 10 MG PO Q8H PRN for SPASMS Prescribed by: DINORA AVINA MD on 07/10/18 1554 Tramadol HCl 50 Mg Tablet, 50 MG PO Q4H PRN for PAIN-MODERATE Prescribed by: DINORA AVINA MD on 07/10/18 1554 Past Kasjtgo-Tlgchu-Aovsqw Hx Patient Social History Alcohol Use: Denies Use Recreational Drug Use: No Smoking Status: Never a Smoker Type Used: Cigarettes 2nd Hand Smoke Exposure: No Recent Foreign Travel: No Contact w/Someone Who Travel: No Recent Infectious Disease Expo: No Recent Hopitalizations: No Seasonal Allergies Seasonal Allergies: No Past Medical History Surgeries: Yes Section, Orthopedic Respiratory: No Cardiac: Yes ( bradycardia) Headaches /Migraines Genitourinary: No Gastrointestinal: No Musculoskeletal: No Endocrine: No HEENT: No Cancer: No Psychosocial: Yes Anxiety, Depression Integumentary: No Blood Disorders: No Adverse Reaction/Blood Tranf: No Physical Exam Vital Signs Vital Signs - First Documented 07/27/18 18:23 Temp 98.2 Pulse 60 Resp 19 B/P (MAP) 139/66 (90) Pulse Ox 96 O2 Delivery Room Air Capillary Refill : Less Than 3 Seconds Height, Weight, BMI Height: 5'2.00" Weight: 255lbs. oz. 115.076564mx; BMI Method:Stated Progress/Results/Core Measures Results/Orders My Orders Orders - HALIMA BRADLEY Ibuprofen Tablet (Motrin Tablet) (07/27/18 19:00) Knee, Right, 3 Views (07/27/18 18:49) Medications Given in ED Current Medications Medications Dose Ordered Sig/Jana Route Start Time Stop Time Status Last Admin Dose Admin Ibuprofen 800 mg ONCE ONCE PO 07/27/18 19:00 07/27/18 19:01 DC 07/27/18 19:09 800 MG Vital Signs/I&O 07/27/18 18:23 Temp 98.2 Pulse 60 Resp 19 B/P (MAP) 139/66 (90) Pulse Ox 96 O2 Delivery Room Air Blood Pressure Mean: 90 Departure Impression Primary Impression: Knee pain Qualified Codes: M25.561 - Pain in right knee Disposition: HOME, SELF-CARE Condition: Stable/Unchanged Departure-Patient Inst. Decision time for Depature: 19:24 Referrals: [facility] (PCP) Primary Care Physician JEFERSON RIGGS APRN (Family) Primary Care Physician Patient Instructions: Knee Sprain (DC) Add. Discharge Instructions: Follow-up with your primary care provider within 1 week for further evaluation of your knee pain. You may use ibuprofen and Tylenol as directed by the bottle for pain relief. Wear the Zuhair bandage as needed for comfort. Ice to the sore areas at 20 minute intervals. Return back to the emergency room for worsening symptoms or concerns as needed. All discharge instructions reviewed with patient and/or family. Voiced understanding. Work/School Note: Work Release Form Date Seen in the Emergency Department: Jul 27, 2018 Return to Work: Jul 28, 2018 Restrictions: No Restrictions HALIMA BRADLEY Jul 27, 2018 19:16
[2018-07-27 19:48] VITALS: BP 139/66
--- OUTSIDE RECORDS SUMMARY | 2018-07-27 23:16 | XMS REPORT | Continuity of Care Document ---
Author Organization Unknown Address Unknown Allergies Active Description Code Type Severity Reaction Onset Reported/Identified Relationship to Patient Clinical Status Yes No Known Drug Allergies [id number] Drug Allergy Unknown N/A 11/02/2017 Medications There is no data. Problems Date Dx Coded Attending Type Code Diagnosis Diagnosed By 11/02/2017 MONIE CHAVIS MD Ot F17.210 NICOTINE DEPENDENCE, CIGARETTES, UNCOMPL 11/02/2017 MONIE CHAVIS MD Ot K60.2 ANAL FISSURE, UNSPECIFIED 11/02/2017 MONIE CHAVIS MD Ot K62.5 HEMORRHAGE OF ANUS AND RECTUM 11/02/2017 MONIE CHAVIS MD Ot Z98.890 OTHER SPECIFIED POSTPROCEDURAL STATES 11/04/2017 MONIE CHAVIS MD Ot F17.210 NICOTINE DEPENDENCE, CIGARETTES, UNCOMPL 11/04/2017 MONIE CHAVIS MD Ot K60.2 ANAL FISSURE, UNSPECIFIED 11/04/2017 MONIE CHAVIS MD Ot K62.5 HEMORRHAGE OF ANUS AND RECTUM 11/04/2017 MONIE CHAVIS MD Ot Z98.890 OTHER SPECIFIED POSTPROCEDURAL STATES 01/13/2018 BAIMA, JACLYN L MEDICAL APPLIANCE MAKER Ot R00.1 BRADYCARDIA, UNSPECIFIED 01/13/2018 BAIMA, JACLYN L MEDICAL APPLIANCE MAKER Ot R00.2 PALPITATIONS 01/13/2018 BAIMA, JACLYN L MEDICAL APPLIANCE MAKER Ot R06.02 SHORTNESS OF BREATH 01/13/2018 BAIMA, JACLYN L MEDICAL APPLIANCE MAKER Ot R07.9 CHEST PAIN, UNSPECIFIED 02/11/2018 IRMA JON APRN Ot E66.01 MORBID (SEVERE) OBESITY DUE TO EXCESS CA 02/11/2018 IRMA JON APRN Ot G47.10 HYPERSOMNIA, UNSPECIFIED 02/11/2018 IRMA JON APRN Ot R00.1 BRADYCARDIA, UNSPECIFIED 02/20/2018 BAIMA, JACLYN L MEDICAL APPLIANCE MAKER Ot R00.1 BRADYCARDIA, UNSPECIFIED 02/20/2018 BAIMA, JACLYN L MEDICAL APPLIANCE MAKER Ot R00.2 PALPITATIONS 02/20/2018 BAIMA, JACLYN L MEDICAL APPLIANCE MAKER Ot R06.02 SHORTNESS OF BREATH 02/20/2018 BAIMA, JACLYN L MEDICAL APPLIANCE MAKER Ot R07.9 CHEST PAIN, UNSPECIFIED 02/23/2018 DONTRELL, IRMA E GUIDEMAN Ot E66.01 MORBID (SEVERE) OBESITY DUE TO EXCESS CA 02/23/2018 DONTRELL, IRMA E GUIDEMAN Ot G47.10 HYPERSOMNIA, UNSPECIFIED 02/23/2018 DONTRELL, IRMA E GUIDEMAN Ot R00.2 PALPITATIONS 02/26/2018 DONTRELL, IRMA E GUIDEMAN Ot E66.01 MORBID (SEVERE) OBESITY DUE TO EXCESS CA 02/26/2018 DONTRELL, IRMA E GUIDEMAN Ot G47.10 HYPERSOMNIA, UNSPECIFIED 02/26/2018 DONTRELL, IRMA E GUIDEMAN Ot R00.2 PALPITATIONS 02/26/2018 BAIMA, JACLYN L MEDICAL APPLIANCE MAKER Ot R00.1 BRADYCARDIA, UNSPECIFIED 02/26/2018 BAIMA, JACLYN L MEDICAL APPLIANCE MAKER Ot R00.2 PALPITATIONS 02/26/2018 BAIMA, JACLYN L MEDICAL APPLIANCE MAKER Ot R06.02 SHORTNESS OF BREATH 02/26/2018 BAIMA, JACLYN L MEDICAL APPLIANCE MAKER Ot R07.9 CHEST PAIN, UNSPECIFIED 02/26/2018 DONTRELL, IRMA E GUIDEMAN Ot E66.01 MORBID (SEVERE) OBESITY DUE TO EXCESS CA 02/26/2018 DONTRELL, IRMA E GUIDEMAN Ot G47.10 HYPERSOMNIA, UNSPECIFIED 02/26/2018 DONTRELL, IRMA E GUIDEMAN Ot R00.2 PALPITATIONS 02/26/2018 BAIMA, JACLYN L MEDICAL APPLIANCE MAKER Ot R00.1 BRADYCARDIA, UNSPECIFIED 02/26/2018 BAIMA, JACLYN L MEDICAL APPLIANCE MAKER Ot R00.2 PALPITATIONS 02/26/2018 BAIMA, JACLYN L MEDICAL APPLIANCE MAKER Ot R06.02 SHORTNESS OF BREATH 02/26/2018 BAIMA, JACLYN L MEDICAL APPLIANCE MAKER Ot R07.9 CHEST PAIN, UNSPECIFIED 02/26/2018 DONTRELL, IRMA E GUIDEMAN Ot E66.01 MORBID (SEVERE) OBESITY DUE TO EXCESS CA 02/26/2018 DONTRELL IRMA E GUIDEMAN Ot G47.10 HYPERSOMNIA, UNSPECIFIED 02/26/2018 DONTRELL IRMA Ekta GUIDEMAN Ot R00.2 PALPITATIONS 03/10/2018 BAIMA, JACLYN L MEDICAL APPLIANCE MAKER Ot R00.1 BRADYCARDIA, UNSPECIFIED 03/10/2018 BAIMA, JACLYN L MEDICAL APPLIANCE MAKER Ot R00.2 PALPITATIONS 03/10/2018 BAIMA, JACLYN L MEDICAL APPLIANCE MAKER Ot R06.02 SHORTNESS OF BREATH 03/10/2018 BAIMA, JACLYN L MEDICAL APPLIANCE MAKER Ot R07.9 CHEST PAIN, UNSPECIFIED 03/10/2018 TIMOTHY JONINE E GUIDEMAN Ot E66.01 MORBID (SEVERE) OBESITY DUE TO EXCESS CA 03/10/2018 IRMA JON E GUIDEMAN Ot G47.10 HYPERSOMNIA, UNSPECIFIED 03/10/2018 IRMA JON Ekta GUIDEMAN Ot R00.2 PALPITATIONS 07/10/2018 BAIMA, JACLYN L MEDICAL APPLIANCE MAKER Ot R00.1 BRADYCARDIA, UNSPECIFIED 07/10/2018 BAIMA, JACLYN L MEDICAL APPLIANCE MAKER Ot R00.2 PALPITATIONS 07/10/2018 BAIMA, JACLYN L MEDICAL APPLIANCE MAKER Ot R06.02 SHORTNESS OF BREATH 07/10/2018 BAIMA, JACLYN L MEDICAL APPLIANCE MAKER Ot R07.9 CHEST PAIN, UNSPECIFIED 07/10/2018 IRMA JON E GUIDEMAN Ot E66.01 MORBID (SEVERE) OBESITY DUE TO EXCESS CA 07/10/2018 IRMA JON GUIDEMAN Ot G47.10 HYPERSOMNIA, UNSPECIFIED 07/10/2018 IRMA JON GUIDEMAN Ot R00.2 PALPITATIONS 07/13/2018 KAILYN STAPLETON, DINORA Almanzar Ot F32.9 MAJOR DEPRESSIVE DISORDER, SINGLE EPISOD 07/13/2018 KAILYN STAPLETON, DINORA Almanzar Ot F41.9 ANXIETY DISORDER, UNSPECIFIED 07/13/2018 KAILYN STAPLETON, DINORA Almanzar Ot G43.909 MIGRAINE, UNSP, NOT INTRACTABLE, WITHOUT 07/13/2018 KAILYN STAPLETON, DINORA Almanzar Ot M54.5 LOW BACK PAIN 07/13/2018 KAILYN STAPLETON, DINORA Almanzar Ot Z98.890 OTHER SPECIFIED POSTPROCEDURAL STATES Procedures There is no data. Results Test Result Range Urine beta human chorionic gonadotropin (hCG) measurement - 11/02/17 11:35 Urine beta human chorionic gonadotropin (hCG) measurement NEGATIVE NEGATIVE Complete urinalysis with reflex to culture - 11/02/17 11:35 Urine color determination YELLOW NRG Urine clarity determination SLIGHTLY CLOUDY NRG Urine pH measurement by test strip 5 5-9 Specific gravity of urine by test strip 1.020 1.016-1.022 Urine protein assay by test strip, semi-quantitative 2+ NEGATIVE Urine glucose detection by automated test strip NEGATIVE NEGATIVE Erythrocytes detection in urine sediment by light microscopy NEGATIVE NEGATIVE Urine ketones detection by automated test strip NEGATIVE NEGATIVE Urine nitrite detection by test strip NEGATIVE NEGATIVE Urine total bilirubin detection by test strip NEGATIVE NEGATIVE Urine urobilinogen measurement by automated test strip (mass/volume) NORMAL NORMAL Urine leukocyte esterase detection by dipstick 1+ NEGATIVE Automated urine sediment erythrocyte count by microscopy (number/high power field) NONE NRG Automated urine sediment leukocyte count by microscopy (number/high power field) [HPF] NRG Bacteria detection in urine sediment by light microscopy FEW NRG Squamous epithelial cells detection in urine sediment by light microscopy 10-25 NRG Crystals detection in urine sediment by light microscopy NONE NRG Casts detection in urine sediment by light microscopy NONE NRG Mucus detection in urine sediment by light microscopy LARGE NRG Complete urinalysis with reflex to culture YES NRG Bacterial urine culture - 11/02/17 11:35 Bacterial urine culture SEE REPORT NRG COLONY COUNT . NRG CBC - 11/11/17 11:34 WHITE BLOOD CELL COUNT 7.3 Thousand/uL 3.8-10.8 RED BLOOD CELL COUNT 5.18 Million/uL 3.80-5.10 HEMOGLOBIN 13.9 g/dL 11.7-15.5 HEMATOCRIT 43.0 % 35.0-45.0 MCV 83.0 fL 80.0-100.0 MCH 26.8 pg 27.0-33.0 MCHC 32.3 g/dL 32.0-36.0 RDW 14.9 % 11.0-15.0 PLATELET COUNT 336 Thousand/uL 140-400 MPV 9.9 fL 7.5-12.5 ABSOLUTE NEUTROPHILS 4329 cells/uL 7152-1432 ABSOLUTE LYMPHOCYTES 2329 cells/uL 850-3900 ABSOLUTE MONOCYTES 504 cells/uL 200-950 ABSOLUTE EOSINOPHILS 102 cells/uL 15-500 ABSOLUTE BASOPHILS 37 cells/uL 0-200 NEUTROPHILS 59.3 % NRG LYMPHOCYTES 31.9 % NRG MONOCYTES 6.9 % NRG EOSINOPHILS 1.4 % NRG BASOPHILS 0.5 % NRG TSH - 11/11/17 11:34 TSH 1.69 mIU/L NRG Complete urinalysis with reflex to culture - 07/10/18 12:57 Urine color determination YELLOW NRG Urine clarity determination CLEAR NRG Urine pH measurement by test strip 5 5-9 Specific gravity of urine by test strip 1.015 1.016-1.022 Urine protein assay by test strip, semi-quantitative 1+ NEGATIVE Urine glucose detection by automated test strip NEGATIVE NEGATIVE Erythrocytes detection in urine sediment by light microscopy NEGATIVE NEGATIVE Urine ketones detection by automated test strip NEGATIVE NEGATIVE Urine nitrite detection by test strip NEGATIVE NEGATIVE Urine total bilirubin detection by test strip NEGATIVE NEGATIVE Urine urobilinogen measurement by automated test strip (mass/volume) NORMAL NORMAL Urine leukocyte esterase detection by dipstick 1+ NEGATIVE Automated urine sediment erythrocyte count by microscopy (number/high power field) NONE NRG Automated urine sediment leukocyte count by microscopy (number/high power field) RARE NRG Bacteria detection in urine sediment by light microscopy NEGATIVE NRG Squamous epithelial cells detection in urine sediment by light microscopy 2-5 NRG Crystals detection in urine sediment by light microscopy NONE NRG Casts detection in urine sediment by light microscopy NONE NRG Mucus detection in urine sediment by light microscopy NEGATIVE NRG Complete urinalysis with reflex to culture NO NRG Complete blood count (CBC) with automated white blood cell (WBC) differential - 07/10/18 14:20 Blood leukocytes automated count (number/volume) 8.1 10*3/uL 4.3-11.0 Blood erythrocytes automated count (number/volume) 5.04 10*6/uL 4.35-5.85 Venous blood hemoglobin measurement (mass/volume) 14.2 g/dL 11.5-16.0 Blood hematocrit (volume fraction) 41 % 35-52 Automated erythrocyte mean corpuscular volume 81 [foz_us] 80-99 Automated erythrocyte mean corpuscular hemoglobin (mass per erythrocyte) 28 pg 25-34 Automated erythrocyte mean corpuscular hemoglobin concentration measurement (mass/volume) 35 g/dL 32-36 Automated erythrocyte distribution width ratio 13.8 % 10.0- 14.5 Automated blood platelet count (count/volume) 328 10*3/uL 130-400 Automated blood platelet mean volume measurement 9.5 [foz_us] 7.4-10.4 Automated blood neutrophils/100 leukocytes 55 % 42-75 Automated blood lymphocytes/100 leukocytes 35 % 12-44 Blood monocytes/100 leukocytes 9 % 0-12 Automated blood eosinophils/100 leukocytes 1 % 0-10 Automated blood basophils/100 leukocytes 0 % 0-10 Blood neutrophils automated count (number/volume) 4.4 10*3 1.8-7.8 Blood lymphocytes automated count (number/volume) 2.8 10*3 1.0-4.0 Blood monocytes automated count (number/volume) 0.7 10*3 0.0- 1.0 Automated eosinophil count 0.1 10*3/uL 0.0-0.3 Automated blood basophil count (count/volume) 0.0 10*3/uL 0.0-0.1 Comprehensive metabolic panel - 07/10/18 14:20 Serum or plasma sodium measurement (moles/volume) 140 mmol/L 135-145 Serum or plasma potassium measurement (moles/volume) 3.2 mmol/L 3.6-5.0 Serum or plasma chloride measurement (moles/volume) 106 mmol/L 98-107 Carbon dioxide 22 mmol/L 21-32 Serum or plasma anion gap determination (moles/volume) 12 mmol/L 5-14 Serum or plasma urea nitrogen measurement (mass/volume) 9 mg/dL 7-18 Serum or plasma creatinine measurement (mass/volume) 0.69 mg/dL 0.60-1.30 Serum or plasma urea nitrogen/creatinine mass ratio 13 NRG Serum or plasma creatinine measurement with calculation of estimated glomerular filtration rate > NRG Serum or plasma glucose measurement (mass/volume) 88 mg/dL 70-105 Serum or plasma calcium measurement (mass/volume) 9.3 mg/dL 8.5-10.1 Serum or plasma total bilirubin measurement (mass/volume) 0.3 mg/dL 0.1-1.0 Serum or plasma alkaline phosphatase measurement (enzymatic activity/volume) 63 U/L 40-136 Serum or plasma aspartate aminotransferase measurement (enzymatic activity/volume) 20 U/L 5-34 Serum or plasma alanine aminotransferase measurement (enzymatic activity/volume) 31 U/L 0-55 Serum or plasma protein measurement (mass/volume) 7.1 g/dL 6.4-8.2 Serum or plasma albumin measurement (mass/volume) 4.2 g/dL 3.2-4.5 CALCIUM CORRECTED 9.1 mg/dL 8.5-10.1 Lipase - 07/10/18 14:20 Lipase 13 U/L 8-78 Encounters ACCT No. Visit Date/Time Discharge Status Pt. Type Provider Facility Loc./Unit Complaint [id number] 06/16/2018 13:00:00 06/16/2018 23:59:59 CLS Outpatient JEFERSON RIGGS [facility] [id number] 11/11/2017 10:00:00 Document Registration [id number] 07/27/2018 17:31:00 07/27/2018 19:48:00 DIS Emergency MIRNACARLINEIS [facility] ER R KNEE PAIN [id number] 07/10/2018 12:35:00 07/10/2018 16:05:00 DIS Outpatient KAILYN STAPLETON, DINORA Almanzar [facility] ER LOWER BACK PAIN [id number] 03/10/2018 13:00:00 03/10/2018 23:59:59 CLS Preadmit JACLYN ROP [facility] CARD CHEST PAIN,SOB,HEART PALPITATIONS [id number] 02/20/2018 12:55:00 02/20/2018 23:59:59 CLS Outpatient IRMA JON APRN [facility] RT RADIOLOGICAL TECHNICIAN DISORDER [id number] 02/11/2018 15:00:00 02/11/2018 15:30:00 DIS Outpatient IRMA JON APRN [facility] SLEEP HYPERSOMNIA, MORBID OBESITY [id number] 01/12/2018 11:00:00 01/12/2018 23:59:59 CLS Outpatient JACLYN ROP [facility] CARD CHEST PAIN,SOB,HEART PALPITATIONS [id number] 11/02/2017 10:46:00 11/02/2017 14:16:00 DIS Emergency PALMIRA STAPLETON, MONIE Peralta [facility] ER PASSING BLOOD IN STOOL,PT HAS IUD
== END 2018-07-27 19:48 | disposition home or self-care (01) ==
LOC: EDUNIT# 17:30 → ER 17:31
DX: M25.561 Pain in right knee (principal); F41.9 Anxiety disorder, unspecified; F32.9 Major depressive disorder, single episode, unspecified; G43.909 Migraine, unspecified, not intractable, without status migrainosus; Z98.890 Other specified postprocedural states
CPT/HCPCS: 73562

== ENCOUNTER 2019-03-24 18:04 | Emergency (ER) | payer SELFPAY ==
[~2019-03-24] VITALS: Ht 157 cm; Wt 118.0 kg
[2019-03-24 18:26] LABS: BASOPHILS % (AUTO) 0 % (0-10); EOSINOPHILS # (AUTO) 0.1 10^3/uL (0.0-0.3); EOSINOPHILS % (AUTO) 1 % (0-10); HEMATOCRIT 42 % (35-52); HEMOGLOBIN 14.7 G/DL (11.5-16.0); LYMPHOCYTES # (AUTO) 4.3 X 10^3 (1.0-4.0); LYMPHOCYTES % (AUTO) 57 % (12-44); MEAN CORPUSCULAR HEMOGLOBIN 30 PG (25-34); MEAN CORPUSCULAR HGB CONC 35 G/DL (32-36); MEAN CORPUSCULAR VOLUME 85 FL (80-99); MONOCYTES # (AUTO) 0.6 X 10^3 (0.0-1.0); MONOCYTES % (AUTO) 8 % (0-12); NEUTROPHILS # (AUTO) 2.5 X 10^3 (1.8-7.8); NEUTROPHILS % (AUTO) 34 % (42-75); PLATELET COUNT 269 10^3/uL (130-400); RED CELL DISTRIBUTION WIDTH 15.9 % (10.0-14.5); WHITE BLOOD COUNT 7.5 10^3/uL (4.3-11.0)
[2019-03-24] MEDS ORDERED: KETOROLAC 30 MG/ML VIAL IVP ONE (18:30)
[2019-03-24 18:43] LABS: INR 0.9 (0.8-1.4); PROTHROMBIN TIME PATIENT 12.6 SEC (12.2-14.7)
[2019-03-24 18:47] LABS: ALANINE AMINOTRANSFERASE 85 U/L (0-55); ALBUMIN 4.1 GM/DL (3.2-4.5); ALKALINE PHOSPHATASE 80 U/L (40-136); BILIRUBIN,TOTAL 0.6 MG/DL (0.1-1.0); BUN/CREATININE RATIO 10; CALCIUM 8.9 MG/DL (8.5-10.1); CARBON DIOXIDE 24 MMOL/L (21-32); CHLORIDE 107 MMOL/L (98-107); CREATININE SERUM 0.79 MG/DL (0.60-1.30); GFR ESTIMATED > 60; GLUCOSE 100 MG/DL (70-105); MAGNESIUM 2.1 MG/DL (1.6-2.4); POTASSIUM 3.7 MMOL/L (3.6-5.0); SODIUM 139 MMOL/L (135-145); TOTAL PROTEIN 7.6 GM/DL (6.4-8.2)
--- NOTE | 2019-03-24 18:52 | ED Chest Pain ---
General Chief Complaint: Chest Pain Stated Complaint: CP,DIZZINESS, HIGH BP Nursing Triage Note: PT PRESENTS TO ED WITH COMPLAINTS OF INTERMITTENT L SIDED CP X 1 MONTH. PT REPORT DIZZINESS, FAINT FEELING, AND HTN X 2 WEEKS. Nursing Sepsis Screen: No Definite Risk Source: patient, old records Exam Limitations: no limitations History of Present Illness Date Seen by Provider: Mar 24, 2019 Time Seen by Provider: 18:06 Initial Comments This 23-year-old woman presents to the emergency room with complaints of left- sided chest pain for one month and some dizziness/lightheadedness for the past 2 weeks. She was concerned about her blood pressure of 137/79 in the outpatient s etting. Her pain is migratory but usually beneath the left breast. She states massage improves the pain. Pain seems to be a little worse with deep breathing. She has had some mild cough recently. She describes the pain as a stabbing sensation. She denies . She reports a history of bradycardia and valvular disease. She denies use of any substances that might cause h ypertension such as diet pills, decongestant medications, caffeine, illicit substances, etc. She reports her pain as 8/10. Pain is reproducible with palpation near the left breast. Blood pressure is normal on assessment. She reports iqnq-erd-hevhgwd pain medications are not helpful. Review of chart notes a Holter monitor study in 2018 revealing no significant events. She had some PVCs and PACs totaling less than one percent. Allergies and Home Medications Allergies Coded Allergies: No Known Drug Allergies (Unverified , 11/02/17) Home Medications Cyclobenzaprine HCl 10 Mg Tablet, 10 MG PO Q8H PRN for SPASMS Prescribed by: DINORA AVINA MD on 07/10/18 0002 Prednisone 20 Mg Tab, 20 MG PO DAILY Prescribed by: MALCOM HERRERA on 03/24/19 193 Tramadol HCl 50 Mg Tablet, 50 MG PO Q4H PRN for PAIN-MODERATE Prescribed by: DINORA AVINA MD on 07/10/18 [id number] Patient Home Medication List Home Medication List Reviewed: Yes Review of Systems Review of Systems Constitutional: no symptoms reported EENTM: No Symptoms Reported Respiratory: See HPI Cardiovascular: See HPI Gastrointestinal: No Symptoms Reported Genitourinary: No Symptoms Reported Musculoskeletal: see HPI Skin: no symptoms reported Psychiatric/Neurological: No Symptoms Reported Endocrine: No Symptoms Reported Hematologic/Lymphatic: No Symptoms Reported Past Gqvoczl-Klqdoc-Tlmoal Hx Past Med/Social Hx: Reviewed Nursing Past Med/Soc Hx Patient Social History Alcohol Use: Denies Use Recreational Drug Use: No Smoking Status: Former Smoker Type Used: Cigarettes Former Smoker, Quit: Mar 24, 2017 2nd Hand Smoke Exposure: No Recent Foreign Travel: No Contact w/Someone Who Travel: No Recent Infectious Disease Expo: No Recent Hopitalizations: No Physical Abuse: No Sexual Abuse: No Mistreated: No Fear: No Seasonal Allergies Seasonal Allergies: No Past Medical History Surgeries: Yes Section, Orthopedic Respiratory: No Cardiac: Yes (patient reports bradycardia and valvular disease) Headaches /Migraines Genitourinary: No Gastrointestinal: No Musculoskeletal: No Endocrine: No HEENT: No Cancer: No Psychosocial: Yes Anxiety, Depression Integumentary: No Blood Disorders: No Adverse Reaction/Blood Tranf: No Physical Exam Vital Signs Vital Signs - First Documented 03/24/19 18:26 Temp 35.5 Pulse 59 Resp 18 B/P (MAP) 129/89 (102) Pulse Ox 98 O2 Delivery Room Air Capillary Refill : Less Than 3 Seconds Height, Weight, BMI Height: 5'2.00" Weight: 255lbs. oz. 115.281072uw; 47.00 BMI Method:Stated General Appearance: No Apparent Distress, WD/WN, Obese HEENT: PERRL/EOMI, Normal ENT Inspection Neck: Normal Inspection Respiratory: Lungs Clear, Normal Breath Sounds, No Accessory Muscle Use, No Respiratory Distress, Other (left anterior chest wall tender to palpation, reproducing pain that is patient's chief complaint) Cardiovascular: Regular Rate, Rhythm, No Edema, No Murmur Gastrointestinal: Normal Bowel Sounds, Non Tender, Soft Extremity: Normal Inspection, Non Tender, No Calf Tenderness, No Pedal Edema Neurologic/Psychiatric: Alert, Oriented x3, No Motor/Sensory Deficits, Normal Mood/Affect, finishing supervisor II-XII Norm as Tested Skin: Normal Color, Warm/Dry Progress/Results/Core Measures Results/Orders Lab Results Laboratory Tests Test 03/24/19 18:18 Range/Units White Blood Count 7.5 4.3-11.0 10^3/uL Red Blood Count 4.96 4.35-5.85 10^6/uL Hemoglobin 14.7 11.5-16.0 G/DL Hematocrit 42 35-52 % Mean Corpuscular Volume 85 80-99 FL Mean Corpuscular Hemoglobin 30 25-34 PG Mean Corpuscular Hemoglobin Concent 35 32-36 G/DL Red Cell Distribution Width 15.9 H 10.0-14.5 % Platelet Count 269 130-400 10^3/uL Mean Platelet Volume 9.0 7.4-10.4 FL Neutrophils (%) (Auto) 34 L 42-75 % Lymphocytes (%) (Auto) 57 H 12-44 % Monocytes (%) (Auto) 8 0-12 % Eosinophils (%) (Auto) 1 0-10 % Basophils (%) (Auto) 0 0-10 % Neutrophils # (Auto) 2.5 1.8-7.8 X 10^3 Lymphocytes # (Auto) 4.3 H 1.0-4.0 X 10^3 Monocytes # (Auto) 0.6 0.0-1.0 X 10^3 Eosinophils # (Auto) 0.1 0.0-0.3 10^3/uL Basophils # (Auto) 0.0 0.0-0.1 10^3/uL Prothrombin Time 12.6 12.2-14.7 SEC INR Comment 0.9 0.8-1.4 Activated Partial Thromboplast Time 26 24-35 SEC Sodium Level 139 135-145 MMOL/L Potassium Level 3.7 3.6-5.0 MMOL/L Chloride Level 107 98-107 MMOL/L Carbon Dioxide Level 24 21-32 MMOL/L Anion Gap 8 5-14 MMOL/L Blood Urea Nitrogen 8 7-18 MG/DL Creatinine 0.79 0.60-1.30 MG/DL Estimat Glomerular Filtration Rate > 60 BUN/Creatinine Ratio 10 Glucose Level 100 70-105 MG/DL Calcium Level 8.9 8.5-10.1 MG/DL Corrected Calcium 8.8 8.5-10.1 MG/DL Magnesium Level 2.1 1.6-2.4 MG/DL Total Bilirubin 0.6 0.1-1.0 MG/DL Aspartate Amino Transf (AST/SGOT) 38 H 5-34 U/L Alanine Aminotransferase (ALT/SGPT) 85 H 0-55 U/L Alkaline Phosphatase 80 40-136 U/L Myoglobin 20.7 10.0-92.0 NG/ML Troponin I < 0.028 <0.028 NG/ML Total Protein 7.6 6.4-8.2 GM/DL Albumin 4.1 3.2-4.5 GM/DL TSH Marcell Testing 1.21 0.35-4.94 UIU/ML Serum Test, Qualitative NEGATIVE NEGATIVE My Orders Orders - MALCOM PINTO MD Ed Iv/Invasive Line Start (03/24/19 18:06) Ekg Tracing (03/24/19 18:06) Monitor-Rhythm Ecg Trace Only (03/24/19 18:06) Cbc With Automated Diff (03/24/19 18:18) Magnesium (03/24/19 18:18) Chest 1 View, Ap/Pa Only (03/24/19 18:18) Comprehensive Metabolic Panel (03/24/19 18:18) Myoglobin Serum (03/24/19 18:18) Protime With Inr (03/24/19 18:18) Partial Thromboplastin Time (03/24/19 18:18) O2 (03/24/19 18:18) Lipid Panel (03/25/19 06:00) Ed Iv/Invasive Line Start (03/24/19 18:18) Troponin I (03/24/19 18:18) Hcg,Qualitative Serum (03/24/19 18:18) Thyroid Analyzer (03/24/19 18:18) Ketorolac Injection (Toradol Injection) (03/24/19 18:30) Chest Pa/Lat (2 View) (03/24/19 18:21) Methylprednisolone Sod Succ (Solu-Medrol (03/24/19 19:45) Medications Given in ED Current Medications Medications Dose Ordered Sig/Jana Route Start Time Stop Time Status Last Admin Dose Admin Ketorolac Tromethamine 30 mg ONCE ONCE IVP 03/24/19 18:30 03/24/19 18:31 DC 03/24/19 18:51 30 MG Vital Signs/I&O 03/24/19 03/24/19 18:26 18:26 Temp 35.5 Pulse 59 Resp 18 B/P (MAP) 129/89 (102) Pulse Ox 98 O2 Delivery Room Air Blood Pressure Mean: 102 Progress Progress Note : Time: 19:44 Progress Note Patient was noted to have some sinus arrhythmia on the monitors. Variable heart rate seemed to be rhythmic correlating with respirations. The lowest heart rate noted was 42 bpm. Workup was otherwise unremarkable. There was a lymphocytic shift on the WBC suggesting perhaps a viral illness. Patient stated she had been seen by a buckle sewer machine in 2012 and there was consideration for a pacemaker at that time. She has not followed with a buckle sewer machine since then. I discussed the case with Dr. Santana who would like to see the patient in his clinic. I have recommended the patient call his office in the morning to set up an appointment. Patient stated Toradol did not improve her pain. I have suggested adding Tylenol and trying a short burst of steroids. Solu-Medrol is being given in the ER. Initial ECG Impression Date: Mar 24, 2019 Initial ECG Impression Time: 18:08 Initial ECG Rate: 58 Comment Sinus arrhythmia likely secondary to respirations in this young patient. No ST elevation or depression. No abnormal intervals or axis deviation. Diagnostic Imaging Diagonstic Imaging: Xray Plain Films/CT/US/NM/MRI: chest Comments Chest x-ray viewed by me and report reviewed. See report below: NAME: LILI ARELLANO [facility] REC#: [id number] PT STATUS: REG ER : 1995 PHYSICIAN: MALCOM PINTO MD ADMIT DATE: 03/24/19/ER Draft Date of Exam:03/24/19 CHEST PA/LAT (2 VIEW) INDICATION: Elevated blood pressure, chest pain, and dizziness. EXAMINATION: Two-view chest, 03/24/2019. FINDINGS: The cardiomediastinal silhouette is unremarkable. The pulmonary vasculature is within normal limits. The lungs and pleural spaces are clear. IMPRESSION: No evidence of an acute cardiopulmonary process. Dictated on workstation # [id number] Dict: 03/24/19 1848 Trans: 03/24/19 [id number] [id number] Interpreted by: DAMEON ZEPEDA MD Departure Impression Primary Impression: Atypical chest pain Additional Impression: Sinus bradycardia Disposition: 01 HOME, SELF-CARE Condition: Stable Departure-Patient Inst. Referrals: [facility] [place] (PCP) Primary Care Physician JEFERSON RIGGS APRN (Family) Primary Care Physician TANI SANTANA MD Patient Instructions: Chest Pain That Is Not Caused by the Heart (DC), Bradycardia Add. Discharge Instructions: Your chest wall pain does not appear to be related to heart or lung problems. It is likely musculoskeletal in nature. You may treat this with a combination of NSAID medications such as ibuprofen and Tylenol (acetaminophen). The rafaela roids prescribed should also help calm down inflammation. NSAID medications and prednisone (steroids) should gradually reduce pain over time. Your symptoms and bradycardia were discussed with Dr. Santana, buckle sewer machine on-call. Please see Dr. Santana, in his clinic as soon as possible. His contact information is below. Call tomorrow morning for an appointment. Return to the emergency room if you're having worsening symptoms despite taking these measures. All discharge instructions reviewed with patient and/or family. Voiced understanding. Scripts Prednisone (Prednisone) 20 Mg Tab 20 MG PO DAILY, #4 TAB 0 Refills Prov: MALCOM PINTO MD 03/24/19 Copy Copies To 1: TANI SANTANA MD Copies To 2: ROLANDO READ JOSHUA T MD Mar 24, 2019 18:52
[2019-03-24 19:06] LABS: TSH (THYROID ANALYZER) 1.21 UIU/ML (0.35-4.94)
[2019-03-24] MEDS ORDERED: PRD20T PO (19:36)
[2019-03-24] MEDS ORDERED: methylPREDNISolone 125 MG (Solu-MEDROL) VIAL IVP ONE (19:45)
[2019-03-24 19:55] VITALS: BP 124/59
== END 2019-03-24 19:56 | disposition home or self-care (01) ==
LOC: EDUNIT# 18:04 → ER 18:05
DX: R07.89 Other chest pain (principal); R00.1 Bradycardia, unspecified; Z87.891 Personal history of nicotine dependence
CPT/HCPCS: 36415; 71046; 80053; 83735; 83874; 84443; 84484; 84703; 85025; 85610; 85730; 93005; 93041

== ENCOUNTER 2020-06-10 12:50 | Emergency (ER) | payer SELFPAY ==
[~2020-06-10] VITALS: Ht 157 cm; Wt 118.0 kg
[~2020-06-10 12:50] MED LIST changes: +PRD20T PO
[2020-06-10 13:09] LABS: CLARITY,URINE CLOUDY; COLOR,URINE ORANGE; GLUCOSE, URINE (UA) NEGATIVE (NEGATIVE); KETONES,URINE NEGATIVE (NEGATIVE); LEUKOCYTE ESTERASE ,URINE NEGATIVE (NEGATIVE); NITRITE,URINE NEGATIVE (NEGATIVE); PROTEIN,URINE 1+ (NEGATIVE)
[2020-06-10] MEDS ORDERED: ONDANSETRON 4 MG/2 ML (SDV) Z0FRAN IVP ONE (13:15)
[2020-06-10] MEDS ORDERED: MECLIZINE 25 MG (ANTIVERT) TAB PO ONE (13:15)
[2020-06-10] MEDS ORDERED: NS IV 1000 ML 1,000 ML IV SCH (13:15)
--- NOTE | 2020-06-10 13:16 | ED General ---
General Chief Complaint: Dizziness/Syncope Stated Complaint: DIZZY/LIGHTHEADED Nursing Triage Note: ARRIVED VIA AMB TO ROOM 05 WITH COMPLAINTS OF DIZZINESS/N/V SINCE STARTING METFORMIN ON THE . HAS SENSE STOPPED IT LAST FRI. PT IS TEARFUL. Nursing Sepsis Screen: No Definite Risk Source of Information: Patient Exam Limitations: No Limitations History of Present Illness Date Seen by Provider: Jun 10, 2020 Time Seen by Provider: 13:14 Initial Comments ER with dizziness nausea and vomiting since she started Wellbutrin and metformin 05/26/20 for hypoglycemia and depression. Timing/Duration: 1-2 Days Severity: Moderate Associated Systoms: No Headaches; Nausea/Vomiting Allergies and Home Medications Allergies Coded Allergies: No Known Drug Allergies (Unverified , 11/02/17) Home Medications Cyclobenzaprine HCl 10 Mg Tablet, 10 MG PO Q8H PRN for SPASMS Prescribed by: DINORA AVINA MD on 07/10/18 155 Prednisone 20 Mg Tab, 20 MG PO DAILY Prescribed by: MALCOM HERRERA on 03/24/19 193 Tramadol HCl 50 Mg Tablet, 50 MG PO Q4H PRN for PAIN-MODERATE Prescribed by: DINORA AVINA MD on 07/10/18 1554 Patient Home Medication List Home Medication List Reviewed: Yes Review of Systems Review of Systems Constitutional: see HPI, dizziness EENTM: see HPI Respiratory: no symptoms reported Cardiovascular: no symptoms reported Genitourinary: no symptoms reported Musculoskeletal: no symptoms reported Skin: no symptoms reported Psychiatric/Neurological: No Symptoms Reported Hematologic/Lymphatic: No Symptoms Reported Past Lttyokn-Bbuplf-Gievuj Hx Patient Social History Type Used: Cigarettes Former Smoker, Quit: Mar 24, 2017 2nd Hand Smoke Exposure: No Recent Infectious Disease Expo: No Recent Hopitalizations: No Seasonal Allergies Seasonal Allergies: No Past Medical History Surgeries: Yes Section, Orthopedic Respiratory: No Cardiac: Yes (patient reports bradycardia and valvular disease) Headaches /Migraines Genitourinary: No Gastrointestinal: No Musculoskeletal: No Endocrine: No HEENT: No Cancer: No Psychosocial: Yes Anxiety, Depression Integumentary: No Blood Disorders: No Adverse Reaction/Blood Tranf: No Physical Exam Vital Signs Vital Signs - First Documented 06/10/20 12:55 Temp 36.4 Pulse 70 Resp 16 B/P (MAP) 154/94 (114) Pulse Ox 98 O2 Delivery Room Air Capillary Refill : Less Than 3 Seconds Height, Weight, BMI Height: 5'2.00" Weight: 255lbs. oz. 115.717017ei; 47.00 BMI Method:Stated General Appearance: No Apparent Distress, WD/WN, Obese, Other (tearful) Eyes: Bilateral Eye Normal Inspection, Bilateral Eye PERRL, Bilateral Eye EOMI Respiratory: No Accessory Muscle Use, No Respiratory Distress Cardiovascular: Regular Rate, Rhythm, Normal Peripheral Pulses Gastrointestinal: Normal Bowel Sounds, Non Tender, Soft Extremity: Normal Capillary Refill, Normal Inspection Neurologic/Psychiatric: Alert, Oriented x3 Skin: Normal Color, Warm/Dry Progress/Results/Core Measures Suspected Sepsis Recent Fever Within 48 Hours: No Infection Criteria Present: None New/Unexplained Altered Menta: No Sepsis Screen: No Definite Risk SIRS Temperature: Pulse: 70 Respiratory Rate: 16 Laboratory Tests 06/10/20 13:10: White Blood Count 10.8 Blood Pressure 154 /94 Mean: 114 Laboratory Tests 06/10/20 13:10: Creatinine 0.76, Platelet Count 373, Total Bilirubin 0.7 Results/Orders Lab Results Laboratory Tests Test 06/10/20 13:00 06/10/20 13:10 Range/Units Urine Color ORANGE Urine Clarity CLOUDY Urine pH 6.0 5-9 Urine Specific [place] >=1.030 1.016-1.022 Urine Protein 1+ H NEGATIVE Urine Glucose (UA) NEGATIVE NEGATIVE Urine Ketones NEGATIVE NEGATIVE Urine Nitrite NEGATIVE NEGATIVE Urine Bilirubin 1+ H NEGATIVE Urine Urobilinogen 0.2 < = 1.0 MG/DL Urine Leukocyte Esterase NEGATIVE NEGATIVE Urine RBC (Auto) NEGATIVE NEGATIVE Urine RBC NONE /HPF Urine WBC 2-5 /HPF Urine Squamous Epithelial Cells 5-10 /HPF Urine Crystals PRESENT H /LPF Urine Amorphous Sediment RARE GALILEO URATES H /LPF Urine Bacteria FEW H /HPF Urine Casts NONE /LPF Urine Mucus MODERATE H /LPF Urine Culture Indicated NO White Blood Count 10.8 4.3-11.0 10^3/uL Red Blood Count 5.16 H 3.80-5.11 10^6/uL Hemoglobin 15.0 11.5-16.0 g/dL Hematocrit 44 35-52 % Mean Corpuscular Volume 85 80-99 fL Mean Corpuscular Hemoglobin 29 25-34 pg Mean Corpuscular Hemoglobin Concent 34 32-36 g/dL Red Cell Distribution Width 12.4 10.0-14.5 % Platelet Count 373 130-400 10^3/uL Mean Platelet Volume 9.1 9.0-12.2 fL Immature Granulocyte % (Auto) 0 % Neutrophils (%) (Auto) 61 42-75 % Lymphocytes (%) (Auto) 33 12-44 % Monocytes (%) (Auto) 6 0-12 % Eosinophils (%) (Auto) 1 0-10 % Basophils (%) (Auto) 0 0-10 % Neutrophils # (Auto) 6.6 1.8-7.8 10^3/uL Lymphocytes # (Auto) 3.5 1.0-4.0 10^3/uL Monocytes # (Auto) 0.6 0.0-1.0 10^3/uL Eosinophils # (Auto) 0.1 0.0-0.3 10^3/uL Basophils # (Auto) 0.0 0.0-0.1 10^3/uL Immature Granulocyte # (Auto) 0.0 0.0-0.1 10^3/uL Sodium Level 139 135-145 MMOL/L Potassium Level 3.6 3.6-5.0 MMOL/L Chloride Level 102 98-107 MMOL/L Carbon Dioxide Level 21 21-32 MMOL/L Anion Gap 16 H 5-14 MMOL/L Blood Urea Nitrogen 5 L 7-18 MG/DL Creatinine 0.76 0.60-1.30 MG/DL Estimat Glomerular Filtration Rate > 60 BUN/Creatinine Ratio 7 Glucose Level 98 70-105 MG/DL Calcium Level 9.3 8.5-10.1 MG/DL Corrected Calcium 9.1 8.5-10.1 MG/DL Total Bilirubin 0.7 0.1-1.0 MG/DL Aspartate Amino Transf (AST/SGOT) 78 H 5-34 U/L Alanine Aminotransferase (ALT/SGPT) 165 H 0-55 U/L Alkaline Phosphatase 65 40-136 U/L Total Protein 7.8 6.4-8.2 GM/DL Albumin 4.3 3.2-4.5 GM/DL My Orders Orders - GIRMA POON APRN Ekg Tracing (06/10/20 13:13) Cbc With Automated Diff (06/10/20 13:13) Comprehensive Metabolic Panel (06/10/20 13:13) Ed Iv/Invasive Line Start (06/10/20 13:13) Ns Iv 1000 Ml (Sodium Chloride 0.9%) (06/10/20 13:15) Ondansetron Injection (Zofran Injectio (06/10/20 13:15) Meclizine Tablet (Antivert Tablet) (06/10/20 13:15) Medications Given in ED Current Medications Medications Dose Ordered Sig/Jana Route Start Time Stop Time Status Last Admin Dose Admin Meclizine HCl 25 mg ONCE ONCE PO 06/10/20 13:15 06/10/20 13:16 DC 06/10/20 13:20 25 MG Ondansetron HCl 4 mg ONCE ONCE IVP 06/10/20 13:15 06/10/20 13:16 DC 06/10/20 13:20 4 MG Vital Signs/I&O 06/10/20 12:55 Temp 36.4 Pulse 70 Resp 16 B/P (MAP) 154/94 (114) Pulse Ox 98 O2 Delivery Room Air Capillary Refill : Less Than 3 Seconds Blood Pressure Mean: 114 Departure Communication (Admissions) Symptoms are common side effects of bupropion. Advised her to write it out for another 2 weeks or so. If symptoms fail to improve then she might consider stopping and transitioning to another medication. Impression Primary Impression: Medication side effect Disposition: 01 HOME, SELF-CARE Condition: Stable Departure-Patient Inst. Decision time for Depature: 13:57 Referrals: [facility] [place]) Primary Care Physician JEFERSON RIGGS APRN (Family) Primary Care Physician Patient Instructions: Side Effects From Medicines Add. Discharge Instructions: 1. Medication as directed. Return to ER for any concerns. Follow-up with your doctor next week. All discharge instructions reviewed with patient and/or family. Voiced understanding. Scripts Meclizine HCl (Meclizine HCl) 25 Mg Tablet 25 MG PO TID PRN for DIZZINESS, #14 TAB Prov: GIRMA POON APRN 06/10/20 Ondansetron (Ondansetron Odt) 8 Mg Tab.rapdis 8 MG PO Q6H PRN for NAUSEA/VOMITING, #30 TAB Prov: GIRMA POON APRN 06/10/20 Work/School Note: Work Release Form Date Seen in the Emergency Department: Jun 10, 2020 Return to Work: Jun 12, 2020 Restrictions: No Restrictions GIRMA POON APRN Jun 10, 2020 13:16
[2020-06-10 13:33] LABS: ALBUMIN 4.3 GM/DL (3.2-4.5); BASOPHILS % (AUTO) 0 % (0-10); CHLORIDE 102 MMOL/L (98-107); EOSINOPHILS # (AUTO) 0.1 10^3/uL (0.0-0.3); EOSINOPHILS % (AUTO) 1 % (0-10); HEMATOCRIT 44 % (35-52); LYMPHOCYTES # (AUTO) 3.5 10^3/uL (1.0-4.0); LYMPHOCYTES % (AUTO) 33 % (12-44); MEAN CORPUSCULAR HEMOGLOBIN 29 pg (25-34); MEAN CORPUSCULAR HGB CONC 34 g/dL (32-36); MEAN CORPUSCULAR VOLUME 85 fL (80-99); MEAN PLATELET VOLUME 9.1 fL (9.0-12.2); MONOCYTES # (AUTO) 0.6 10^3/uL (0.0-1.0); MONOCYTES % (AUTO) 6 % (0-12); NEUTROPHILS # (AUTO) 6.6 10^3/uL (1.8-7.8); NEUTROPHILS % (AUTO) 61 % (42-75); PLATELET COUNT 373 10^3/uL (130-400); POTASSIUM 3.6 MMOL/L (3.6-5.0); SODIUM 139 MMOL/L (135-145); WHITE BLOOD COUNT 10.8 10^3/uL (4.3-11.0)
[2020-06-10 13:34] LABS: CALCIUM 9.3 MG/DL (8.5-10.1)
[2020-06-10 13:35] LABS: GLUCOSE 98 MG/DL (70-105)
[2020-06-10 13:36] LABS: TOTAL PROTEIN 7.8 GM/DL (6.4-8.2)
[2020-06-10 13:37] LABS: BILIRUBIN,TOTAL 0.7 MG/DL (0.1-1.0); CARBON DIOXIDE 21 MMOL/L (21-32)
[2020-06-10 13:39] LABS: ALKALINE PHOSPHATASE 65 U/L (40-136); CREATININE SERUM 0.76 MG/DL (0.60-1.30); GFR ESTIMATED > 60
[2020-06-10 13:40] LABS: BUN/CREATININE RATIO 7
[2020-06-10 13:42] LABS: ALANINE AMINOTRANSFERASE 165 U/L (0-55)
[2020-06-10 13:49] LABS: AMORPHOUS SEDIMENT,UR RARE AMOR URATES /LPF; BACTERIA,URINE FEW /HPF; BILIRUBIN,URINE 1+ (NEGATIVE)
[2020-06-10] MEDS ORDERED: MECL-149 PO (14:09)
[2020-06-10] MEDS ORDERED: ONDA8TAB13 PO (14:09)
[2020-06-10 14:31] VITALS: BP 151/84
== END 2020-06-10 14:31 | disposition home or self-care (01) ==
LOC: EDUNIT# 12:50 → ER 12:52
DX: R42 Dizziness and giddiness (principal); T43.295A Adverse effect of other antidepressants, initial encounter; E66.9 Obesity, unspecified; Z68.42 Body mass index [BMI] 45.0-49.9, adult; Z87.891 Personal history of nicotine dependence; Z79.52 Long term (current) use of systemic steroids
CPT/HCPCS: 36415; 80053; 81000; 84703; 85025; 93005

== ENCOUNTER 2020-07-06 19:04 | Emergency (ER) | payer SELFPAY ==
[~2020-07-06] VITALS: Ht 157 cm; Wt 117.0 kg
[~2020-07-06 19:04] MED LIST changes: +MECL-149 PO; +ONDA8TAB13 PO
[2020-07-06 19:17] VITALS: BP_SYST 134; BP_SYST 148; BP_SYST 155; BP_DIAS 83; BP_DIAS 93
[2020-07-06] MEDS ORDERED: LACTATED RINGERS 1,000 ML IV ONE (19:45)
[2020-07-06] MEDS ORDERED: ONDANSETRON 4 MG/2 ML (SDV) Z0FRAN IVP ONE (19:45)
[2020-07-06] MEDS ORDERED: FAMOTIDINE 20MG/2ML IV (PEPCID) IVP ONE (19:45)
--- NOTE | 2020-07-06 19:50 | ED General ---
General Chief Complaint: Dizziness/Syncope Stated Complaint: DIZZINESS/COUGH Nursing Triage Note: Pt here with dizziness x 1 wk. Also reports cough and nasal congestion as well. Denies fever. Nursing Sepsis Screen: No Definite Risk Source of Information: Patient Exam Limitations: No Limitations History of Present Illness Date Seen by Provider: July 06, 2020 Time Seen by Provider: 19:30 Initial Comments This 24-year-old young lady presents to the emergency room after not feeling well for about a week and with multiple complaints including nausea and vomiting for about 3 days, lightheadedness, change in taste and smell, abdominal cramping, upper abdominal pain, and productive cough. She denies fever. No dysuria. She took a urine test today which was negative. LMP was 2 to 3 weeks ago. Allergies and Home Medications Allergies Coded Allergies: No Known Drug Allergies (Unverified , 11/02/17) Home Medications Cyclobenzaprine HCl 10 Mg Tablet, 10 MG PO Q8H PRN for SPASMS Prescribed by: DINORA AVINA MD on 07/10/18 1554 Meclizine HCl 25 Mg Tablet, 25 MG PO TID PRN for DIZZINESS Prescribed by: GIRMA POON on 06/10/20 1409 Ondansetron 8 Mg Tab.rapdis, 8 MG PO Q6H PRN for NAUSEA/VOMITING Prescribed by: GIRMA POON on 06/10/20 1409 Ondansetron 4 Mg Tab.rapdis, 4 MG SL Q4H PRN for NAUSEA/VOMITING Prescribed by: MALCOM HERRERA on 07/06/208 Prednisone 20 Mg Tab, 20 MG PO DAILY Prescribed by: MALCOM HERRERA on 03/24/19 193 Tramadol HCl 50 Mg Tablet, 50 MG PO Q4H PRN for PAIN-MODERATE Prescribed by: DINORA AVINA MD on 07/10/18 1554 Patient Home Medication List Home Medication List Reviewed: Yes Review of Systems Review of Systems Constitutional: no symptoms reported EENTM: see HPI Respiratory: see HPI Cardiovascular: see HPI Gastrointestinal: see HPI Genitourinary: no symptoms reported : No LMP: Jun 15, 2020 Musculoskeletal: no symptoms reported Skin: no symptoms reported Psychiatric/Neurological: No Symptoms Reported Hematologic/Lymphatic: No Symptoms Reported Immunological/Allergic: no symptoms reported Past Qokyzjx-Zupify-Wtywqv Hx Past Med/Social Hx: Reviewed Nursing Past Med/Soc Hx Patient Social History Alcohol Use: Denies Use Smoking Status: Former Smoker Type Used: Cigarettes Former Smoker, Quit: Mar 24, 2017 2nd Hand Smoke Exposure: No Recent Infectious Disease Expo: No Recent Hopitalizations: No Seasonal Allergies Seasonal Allergies: No Past Medical History Surgeries: Yes Section, Orthopedic Respiratory: No Cardiac: Yes (patient reports bradycardia and valvular disease) Neurological: Yes Headaches /Migraines Genitourinary: No Gastrointestinal: No Musculoskeletal: No Endocrine: No HEENT: No Cancer: No Psychosocial: Yes Anxiety, Depression Integumentary: No Blood Disorders: No Adverse Reaction/Blood Tranf: No Physical Exam Vital Signs Vital Signs - First Documented 07/06/20 07/06/20 19:12 19:17 Temp 36.4 Pulse 64 Resp 18 B/P (MAP) 148/83 (104) 155/83 (107) 134/93 (107) Pulse Ox 98 O2 Delivery Room Air Capillary Refill : Less Than 3 Seconds Height, Weight, BMI Height: 5'2.00" Weight: 255lbs. oz. 115.871579za; 47.00 BMI Method:Stated General Appearance: No Apparent Distress, WD/WN, Obese HEENT: PERRL/EOMI, TMs Normal, Normal ENT Inspection, Pharynx Normal Neck: Normal Inspection Respiratory: Lungs Clear, Normal Breath Sounds, No Accessory Muscle Use, No Respiratory Distress Cardiovascular: Regular Rate, Rhythm, No Edema, No Murmur Gastrointestinal: Normal Bowel Sounds, Soft; No Distended; Tenderness (Epigastrium and left upper quadrant) Extremity: Normal Inspection, No Pedal Edema Neurologic/Psychiatric: Alert, Oriented x3, No Motor/Sensory Deficits, Normal Mood/Affect, business segment manager II-XII Norm as Tested Skin: Normal Color, Warm/Dry Progress/Results/Core Measures Suspected Sepsis Recent Fever Within 48 Hours: No Infection Criteria Present: None New/Unexplained Altered Menta: No Sepsis Screen: No Definite Risk SIRS Temperature: Pulse: 85 Respiratory Rate: 18 Laboratory Tests 07/06/20 19:50: White Blood Count 7.7 Blood Pressure 134 /93 Mean: 107 Laboratory Tests 07/06/20 19:50: Creatinine 0.81, Platelet Count 334, Total Bilirubin 0.5 Results/Orders Lab Results Laboratory Tests Test 07/06/20 19:43 07/06/20 19:50 07/06/20 20:05 Range/Units SARS-CoV-2 RNA (RT-PCR) Not Detected Not Detecte White Blood Count 7.7 4.3-11.0 10^3/uL Red Blood Count 5.25 H 3.80-5.11 10^6/uL Hemoglobin 15.2 11.5-16.0 g/dL Hematocrit 44 35-52 % Mean Corpuscular Volume 83 80-99 fL Mean Corpuscular Hemoglobin 29 25-34 pg Mean Corpuscular Hemoglobin Concent 35 32-36 g/dL Red Cell Distribution Width 12.1 10.0-14.5 % Platelet Count 334 130-400 10^3/uL Mean Platelet Volume 8.9 L 9.0-12.2 fL Immature Granulocyte % (Auto) 0 % Neutrophils (%) (Auto) 49 42-75 % Lymphocytes (%) (Auto) 41 12-44 % Monocytes (%) (Auto) 8 0-12 % Eosinophils (%) (Auto) 2 0-10 % Basophils (%) (Auto) 0 0-10 % Neutrophils # (Auto) 3.8 1.8-7.8 10^3/uL Lymphocytes # (Auto) 3.1 1.0-4.0 10^3/uL Monocytes # (Auto) 0.6 0.0-1.0 10^3/uL Eosinophils # (Auto) 0.2 0.0-0.3 10^3/uL Basophils # (Auto) 0.0 0.0-0.1 10^3/uL Immature Granulocyte # (Auto) 0.0 0.0-0.1 10^3/uL Sodium Level 136 135-145 MMOL/L Potassium Level 3.1 L 3.6-5.0 MMOL/L Chloride Level 100 98-107 MMOL/L Carbon Dioxide Level 26 21-32 MMOL/L Anion Gap 10 5-14 MMOL/L Blood Urea Nitrogen 4 L 7-18 MG/DL Creatinine 0.81 0.60-1.30 MG/DL Estimat Glomerular Filtration Rate > 60 BUN/Creatinine Ratio 5 Glucose Level 100 70-105 MG/DL Calcium Level 8.7 8.5-10.1 MG/DL Corrected Calcium 8.5 8.5-10.1 MG/DL Magnesium Level 2.2 1.6-2.4 MG/DL Total Bilirubin 0.5 0.1-1.0 MG/DL Aspartate Amino Transf (AST/SGOT) 78 H 5-34 U/L Alanine Aminotransferase (ALT/SGPT) 130 H 0-55 U/L Alkaline Phosphatase 71 40-136 U/L C-Reactive Protein High Sensitivity 1.16 H 0.00-0.50 MG/DL Total Protein 7.5 6.4-8.2 GM/DL Albumin 4.2 3.2-4.5 GM/DL Lipase 16 8-78 U/L Serum Test, Qualitative NEGATIVE NEGATIVE Urine Color YELLOW Urine Clarity SL CLOUDY Urine pH 6.5 5-9 Urine Specific [place] <=1.005 1.016-1.022 Urine Protein NEGATIVE NEGATIVE Urine Glucose (UA) NEGATIVE NEGATIVE Urine Ketones NEGATIVE NEGATIVE Urine Nitrite NEGATIVE NEGATIVE Urine Bilirubin NEGATIVE NEGATIVE Urine Urobilinogen 0.2 < = 1.0 MG/DL Urine Leukocyte Esterase NEGATIVE NEGATIVE Urine RBC (Auto) NEGATIVE NEGATIVE Urine RBC NONE /HPF Urine WBC NONE /HPF Urine Squamous Epithelial Cells 5-10 /HPF Urine Crystals PRESENT H /LPF Urine Amorphous Sediment RARE GALILEO URATES H /LPF Urine Bacteria FEW H /HPF Urine Casts NONE /LPF Urine Mucus NEGATIVE /LPF Urine Culture Indicated NO My Orders Orders - MALCOM PINTO MD Cbc With Automated Diff (07/06/20 19:35) Comprehensive Metabolic Panel (07/06/20 19:35) Hs C Reactive Protein (07/06/20 19:35) Hcg,Qualitative Serum (07/06/20 19:35) Lipase (07/06/20 19:35) Magnesium (07/06/20 19:35) Ua Culture If Indicated (07/06/20 19:35) Ed Iv/Invasive Line Start (07/06/20 19:35) Lactated Ringers (Lr 1000 Ml Iv Solution (07/06/20 19:45) Ondansetron Injection (Zofran Injectio (07/06/20 19:45) Famotidine Injection (Pepcid Injection) (07/06/20 19:45) Covid 19 Inhouse Test (07/06/20 19:35) Lidocaine 2% Viscous 15 Ml (Xylocaine Vi (07/06/20 20:45) Antacid Suspension (Mylanta Suspension (07/06/20 20:45) Potassium Chloride (Tablet) (Klor Con Ta (07/06/20 20:45) Medications Given in ED Current Medications Medications Dose Ordered Sig/Jana Route Start Time Stop Time Status Last Admin Dose Admin Al Hydrox/Mg Hydrox/Simethicone 30 ml ONCE ONCE PO 07/06/20 20:45 07/06/20 20:46 DC 07/06/20 20:38 30 ML Famotidine 20 mg ONCE ONCE IVP 07/06/20 19:45 07/06/20 19:46 DC 07/06/20 19:44 20 MG Lactated Ringer's 1,000 ml @ 0 mls/hr Q0M ONCE IV 07/06/20 19:45 07/06/20 19:46 DC 07/06/20 20:00 1,000 MLS/HR Lidocaine HCl 15 ml ONCE ONCE PO 07/06/20 20:45 07/06/20 20:46 DC 07/06/20 20:38 15 ML Ondansetron HCl 8 mg ONCE ONCE IVP 07/06/20 19:45 07/06/20 19:46 DC 07/06/20 19:44 8 MG Potassium Chloride 40 meq ONCE ONCE PO 07/06/20 20:45 07/06/20 20:46 DC 07/06/20 20:52 40 MEQ Vital Signs/I&O 07/06/20 07/06/20 19:12 19:17 Temp 36.4 Pulse 64 78 82 85 Resp 18 B/P (MAP) 148/83 (104) 155/83 (107) 134/93 (107) Pulse Ox 98 O2 Delivery Room Air Capillary Refill : Less Than 3 Seconds Blood Pressure Mean: 107 Progress Note #1: Time: 19:53 Progress Note Patient was seen and examined. She is being treated with Zofran, IV fluids, and Pepcid. COVID-19 swab is pending. Labs and urinalysis are pending. Progress Note #2: Time: 21:13 Progress Note Labs revealed hypokalemia of 3.1. Potassium was replaced orally. GI cocktail was given for her epigastric pain. This had a modest effect. Patient was advised to take a more robust antacid regimen by adding Pepcid to her ome prazole. Zofran was prescribed. She was advised to follow-up next week with her primary care provider if not improved. She may need it gallbladder ultrasound and/or EGD for further evaluation. I suspect her symptoms as outlined in the HPI are related to viral illness. CRP is low and she has a lymphocytic predominance in her WBC differential. See discharge instructions for further discussion. Departure Impression Primary Impression: Nausea and vomiting Qualified Codes: R11.2 - Nausea with vomiting, unspecified Additional Impressions: Epigastric pain Hypokalemia Lightheadedness Disposition: 01 HOME, SELF-CARE Condition: Improved Departure-Patient Inst. Decision time for Depature: 21:05 Referrals: [facility] (PCP) Primary Care Physician JEFERSON RIGGS APRN (Family) Primary Care Physician Patient Instructions: Abdominal Pain, Adult ED, Hypokalemia Add. Discharge Instructions: Drink plenty of noncarbonated clear liquids. Gradually advance diet with small quantities of bland food as tolerated. Continue taking omeprazole either 40 mg daily or 20 mg twice a day. You may add Pepcid (famotidine) 20 mg twice daily for added antacid therapy. Use the Zofran as prescribed for nausea and vomiting. This tablet dissolved under the tongue every 4 hours as needed. If you are not experiencing improvement in your symptoms by early next week, please contact your primary care provider for follow-up. Further studies such as gallbladder ultrasound or upper endoscopy may be needed. Call with questions or concerns. Return to the emergency room if you have worsening symptoms. Your potassium was a little low today. You may boost your potassium by consuming foods and beverages that contain potassium such as sport drinks, bananas, etc. Avoid citrus fruits and juices until your stomach pain improves. All discharge instructions reviewed with patient and/or family. Voiced understanding. Scripts Ondansetron (Ondansetron Odt) 4 Mg Tab.rapdis 4 MG SL Q4H PRN for NAUSEA/VOMITING, #10 TAB 1 Refill Prov: MALCOM PINTO MD 07/06/20 Copy Copies To 1: ROLANDO READ JOSHUA T MD July 06, 2020 19:50
[2020-07-06 20:03] LABS: BASOPHILS % (AUTO) 0 % (0-10); EOSINOPHILS # (AUTO) 0.2 10^3/uL (0.0-0.3); EOSINOPHILS % (AUTO) 2 % (0-10); HEMATOCRIT 44 % (35-52); HEMOGLOBIN 15.2 g/dL (11.5-16.0); LYMPHOCYTES # (AUTO) 3.1 10^3/uL (1.0-4.0); LYMPHOCYTES % (AUTO) 41 % (12-44); MEAN CORPUSCULAR HEMOGLOBIN 29 pg (25-34); MEAN CORPUSCULAR HGB CONC 35 g/dL (32-36); MEAN CORPUSCULAR VOLUME 83 fL (80-99); MEAN PLATELET VOLUME 8.9 fL (9.0-12.2); MONOCYTES # (AUTO) 0.6 10^3/uL (0.0-1.0); MONOCYTES % (AUTO) 8 % (0-12); NEUTROPHILS # (AUTO) 3.8 10^3/uL (1.8-7.8); NEUTROPHILS % (AUTO) 49 % (42-75); PLATELET COUNT 334 10^3/uL (130-400); WHITE BLOOD COUNT 7.7 10^3/uL (4.3-11.0)
[2020-07-06 20:11] LABS: BILIRUBIN,URINE NEGATIVE (NEGATIVE); CLARITY,URINE SL CLOUDY; COLOR,URINE YELLOW; GLUCOSE, URINE (UA) NEGATIVE (NEGATIVE); KETONES,URINE NEGATIVE (NEGATIVE); LEUKOCYTE ESTERASE ,URINE NEGATIVE (NEGATIVE); NITRITE,URINE NEGATIVE (NEGATIVE); PH,URINE 6.5 (5-9); PROTEIN,URINE NEGATIVE (NEGATIVE)
[2020-07-06 20:19] LABS: ALANINE AMINOTRANSFERASE 130 U/L (0-55); ALBUMIN 4.2 GM/DL (3.2-4.5); ALKALINE PHOSPHATASE 71 U/L (40-136); BILIRUBIN,TOTAL 0.5 MG/DL (0.1-1.0); BUN/CREATININE RATIO 5; CALCIUM 8.7 MG/DL (8.5-10.1); CARBON DIOXIDE 26 MMOL/L (21-32); CHLORIDE 100 MMOL/L (98-107); CREATININE SERUM 0.81 MG/DL (0.60-1.30); GFR ESTIMATED > 60; GLUCOSE 100 MG/DL (70-105); LIPASE 16 U/L (8-78); MAGNESIUM 2.2 MG/DL (1.6-2.4); POTASSIUM 3.1 MMOL/L (3.6-5.0); SODIUM 136 MMOL/L (135-145); TOTAL PROTEIN 7.5 GM/DL (6.4-8.2)
[2020-07-06 20:20] LABS: AMORPHOUS SEDIMENT,UR RARE AMOR URATES /LPF; BACTERIA,URINE FEW /HPF
[2020-07-06] MEDS ORDERED: KCL 10 MEQ TAB (MICRO K) PO ONE (20:45)
[2020-07-06] MEDS ORDERED: LIDOCAINE 2% VISCOUS 15 ML UDC PO ONE (20:45)
[2020-07-06] MEDS ORDERED: ANTACID SUSP 30 ML UDC (MYLANTA) PO ONE (20:45)
[2020-07-06] MEDS ORDERED: ONDA4TAB11 SL (21:08)
[2020-07-06 21:12] VITALS: BP 134/93
== END 2020-07-06 21:14 | disposition home or self-care (01) ==
LOC: EDUNIT# 19:04 → ER 19:06
DX: R11.2 Nausea with vomiting, unspecified (principal); R10.13 Epigastric pain; E87.6 Hypokalemia; R42 Dizziness and giddiness; E66.9 Obesity, unspecified; Z68.42 Body mass index [BMI] 45.0-49.9, adult; Z20.822 Contact with and (suspected) exposure to COVID-19; Z87.891 Personal history of nicotine dependence; Z79.52 Long term (current) use of systemic steroids
CPT/HCPCS: 36415; 80053; 81000; 83690; 83735; 84703; 85025; 86141; 87636

== ENCOUNTER 2021-08-03 22:00 | Outpatient (CLI) | payer SELFPAY ==
[~2021-08-03] VITALS: Ht 154.9 cm; Wt 117.3 kg
[~2021-08-03 22:00] MED LIST changes: +CYCL10TA25 PO; -CYCL10TA9 PO; +ONDA4TAB11 SL
[2021-08-03 22:25] VITALS: BP 137/70
[2021-08-03 22:28] LABS: BILIRUBIN,URINE NEGATIVE (NEGATIVE); CLARITY,URINE CLEAR; COLOR,URINE YELLOW; GLUCOSE, URINE (UA) NEGATIVE (NEGATIVE); KETONES,URINE NEGATIVE (NEGATIVE); LEUKOCYTE ESTERASE ,URINE NEGATIVE (NEGATIVE); NITRITE,URINE NEGATIVE (NEGATIVE); PROTEIN,URINE NEGATIVE (NEGATIVE)
[2021-08-03 22:31] VITALS: BP 137/70
[2021-08-03 22:38] LABS: BACTERIA,URINE FEW /HPF; WBC,URINE 0-2 /HPF
[2021-08-03] MEDS ORDERED: PREN-142 PO (22:59)
--- NOTE | 2021-08-06 08:50 | Physician Query-Final Dx ---
Clinic Account Progress/Dx Physician Query: Please give diagnosis Please include # weeks gestation Date of Service Aug 03, 2021 at 22:00 MOODY,FebAug 06, 2021 08:50
== END 2021-08-03 23:10 | disposition home or self-care (01) ==
LOC: WSo 22:00 → LDRP 22:00 → WSo 23:10
PROVIDERS: ATTEND Family Medicine
DX: O62.9 Abnormality of forces of labor, unspecified (principal); Z3A.00 Weeks of gestation of pregnancy not specified
CPT/HCPCS: 81000; 87088

== ENCOUNTER → 2021-09-26 | Outpatient (CLI) | payer SELFPAY ==
[~2021-09-26] VITALS: Ht 157.5 cm; Wt 123.4 kg
[~2021-09-26] MED LIST changes: +PREN-142 PO
== END | disposition home or self-care (01) ==
LOC: PREOP 06:08
PROVIDERS: ATTEND Obstetrics & Gynecology
DX: Z01.818 Encounter for other preprocedural examination (principal)

== ENCOUNTER 2021-10-03 05:55 | Inpatient (IN) | payer OTHER ==
[~2021-10-03] VITALS: Ht 157.5 cm; Wt 123.9 kg
[2021-10-03] VITALS (10 sets, daily range): BP systolic 83–141; BP diastolic 53–80
[2021-10-03] MEDS ORDERED: CITRIC ACID/SOB CIT (BICITRA) 30 ML UDC PO ONE (06:15)
[2021-10-03] MEDS ORDERED: METOCLOPRAMIDE INJ 10 MG/2 ML (REGLAN) IV ONE (06:15)
[2021-10-03] MEDS ORDERED: LACTATED RINGERS 1,000 ML IV SCH ×2 (06:15)
[2021-10-03] MEDS ORDERED: FAMOTIDINE 20MG/2ML IV (PEPCID) IV ONE (06:15)
[2021-10-03] MEDS ORDERED: metroNIDAZOLE 500MG/100ML IVPB 100 ML IV ONE (06:15)
[2021-10-03] MEDS ORDERED: ceFAZolin INJECTION 2,000 MG in NS (IVPB) 50 ML IV ONE (06:15)
[2021-10-03] MEDS ORDERED: fentaNYL INJ 100 MCG/2 ML AMP ONE (06:57)
[2021-10-03] MEDS ORDERED: OXYTOCIN PRE-MIX DRIP 500 ML IV ONE ×2 (06:57→08:06)
[2021-10-03 07:02] LABS: BASOPHILS % (AUTO) 0 % (0-10); EOSINOPHILS # (AUTO) 0.1 10^3/uL (0.0-0.3); EOSINOPHILS % (AUTO) 1 % (0-10); HEMATOCRIT 38 % (35-52); HEMOGLOBIN 12.5 g/dL (11.5-16.0); LYMPHOCYTES # (AUTO) 2.4 10^3/uL (1.0-4.0); LYMPHOCYTES % (AUTO) 23 % (12-44); MEAN CORPUSCULAR HEMOGLOBIN 28 pg (25-34); MEAN CORPUSCULAR HGB CONC 33 g/dL (32-36); MEAN CORPUSCULAR VOLUME 84 fL (80-99); MEAN PLATELET VOLUME 10.3 fL (9.0-12.2); MONOCYTES # (AUTO) 0.8 10^3/uL (0.0-1.0); MONOCYTES % (AUTO) 8 % (0-12); NEUTROPHILS # (AUTO) 7.1 10^3/uL (1.8-7.8); NEUTROPHILS % (AUTO) 68 % (42-75); PLATELET COUNT 274 10^3/uL (130-400); WHITE BLOOD COUNT 10.4 10^3/uL (4.3-11.0)
[2021-10-03] MEDS ORDERED: PHENYLEPHRINE 100 MCG/ML 10 ML (ANESTHESIA) SYR ONE (07:42)
[2021-10-03] MEDS ORDERED: KETOROLAC 30 MG/ML VIAL ONE (07:59)
[2021-10-03] MEDS: KETOROLAC 30 MG/ML VIAL IVP SCH ×3 (08:05→20:14)
[2021-10-03] MEDS ORDERED: D5 LR IV SOLUTION 1,000 ML IV SCH (08:30)
[2021-10-03] MEDS ORDERED: ONDANSETRON 4 MG/2 ML (SDV) Z0FRAN IVP PRN ×2 (08:30)
[2021-10-03] MEDS ORDERED: fentaNYL INJ 100 MCG/2 ML AMP IVP PRN (08:30)
[2021-10-03] MEDS ORDERED: TETANUS,DIPTH,PERTUSS P/F (BOOSTRIX) 0.5 ML VIAL IM ONE (08:30)
[2021-10-03] MEDS ORDERED: HYDROmorphone 2 MG/ML VIAL (DILAUDID) IV ONE (08:30)
[2021-10-03] MEDS: OXYTOCIN PRE-MIX DRIP 500 ML IV SCH ×2 (08:38→13:43)
[2021-10-03] MEDS ORDERED: DOCUSATE SODIUM 100 MG (COLACE) CAP PO SCH (09:00)
[2021-10-03] MEDS: DOCUSATE SODIUM 100 MG (COLACE) CAP PO SCH ×2 (09:00→20:15)
[2021-10-03] MEDS: oxyCODONE/APAP 10/325MG (PERCOCET 10) TABLET PO PRN ×3 (12:43→20:15)
--- NOTE | 2021-10-03 22:00 | OPERATIVE REPORT ---
DATE OF SERVICE: 10/03/2021 PERSONNEL PLACEMENT SPECIALIST: Dr. Grissom. PREOPERATIVE DIAGNOSIS: A 39-week with previous . POSTOPERATIVE DIAGNOSIS: A 39-week with previous . OPERATIVE PROCEDURE: Repeat low transverse delivery of a viable male infant with Apgars of 8 and 9 at 1 and 5 minutes respectively, weight of 8 pounds 4 ounces, time of 746 and a cord blood pH of 7.30. OPERATIVE DESCRIPTION: With the patient in the supine position under satisfactory spinal analgesia, she was positioned supine and prepped and draped in the usual fashion for abdominal surgery. She had a large panniculus that was elevated off of the lower abdomen with towel clips in the upper portion of the right and left lower quadrants and attached to the head of the bed for exposure. A repeat Pfannenstiel incision was now made through the skin with scalpel. The patient's abdomen was entered in the usual manner. Bladder retractor placed into position and a clean scalpel used to make a 4 cm hysterotomy incision transversely across the lower uterine segment that was extended bluntly as well. Copious clear fluid was released on hysterotomy. A vigorous viable male infant was delivered via the uterine incision. Delivery was assisted with a vectis blade. The was bulb suctioned on delivery of the head and again on completion of delivery. The umbilical cord was then doubly clamped and cut, and the was taken to the warmer by Dr. Grissom, the lighting director in attendance for delivery. The placenta delivered spontaneously De. It was normal with a 3-vessel cord. The uterus was exteriorized. The interior wiped clean with a wet laparotomy sponge. Uterine incision closed with a running locked suture of 2-0 Vicryl. Hemostasis was complete. The uterus was returned to the abdominal cavity. All blood clot and debris was removed from the abdominal cavity. With sponge and needle counts correct, hemostasis assured. The anterior parietal peritoneum was closed with running suture of 2-0 Vicryl. Rectus muscles were closed with that suture as well. The rectus fascia was closed with 2-0 Vicryl and the subcutaneous tissue was closed with 2-0 Vicryl also. This skin incision was closed with devan. Sponge and needle counts were correct on completion of the procedure. Blood loss was around 600 mL. The patient tolerated the procedure well and was transferred to the recovery room in stable condition. The had been taken stable to the full-term nursery under the care of the pediatric nurse. Job ID: [id number] DocumentID: [id number] Dictated Date: 10/03/2021 12:24:24 Director Of Field Service Date: 10/03/2021 21:59:13 Dictated By: GUILLERMINA SHELLEY MD
[2021-10-04 01:15] VITALS: BP 127/59
[2021-10-04] MEDS: KETOROLAC 30 MG/ML VIAL IVP SCH (01:17)
[2021-10-04 04:00] VITALS: BP 132/71
[2021-10-04] MEDS ORDERED: IBUPROFEN 800 MG (MOTRIN) TAB PO ONE (07:17)
[2021-10-04] MEDS: IBUPROFEN 800 MG (MOTRIN) TAB PO SCH ×3 (07:18→18:45)
[2021-10-04] MEDS: oxyCODONE/APAP 10/325MG (PERCOCET 10) TABLET PO PRN ×3 (07:18→17:30)
--- NOTE | 2021-10-04 08:02 | Progress Note ---
Standard Progress Note Progress Notes/Assess & Plan Date Seen by a Provider: Oct 04, 2021 Time Seen by a Provider: 08:01 Progress/Assessment & Plan This patient is without complaint. She is ambulating, voiding, tolerating oral intake and has good pain control. She denies headache, denies nausea or vomiting, and denies chest pain. Vital Signs Date Time Temp Pulse Resp B/P (MAP) Pulse Ox O2 Delivery O2 Flow Rate FiO2 10/04/21 04:00 36.0 66 18 132/71 (91) 98 Room Air 10/04/21 01:15 36.0 73 18 127/59 (81) 98 Room Air 10/03/21 20:15 36.3 64 18 129/61 (83) 96 Room Air 10/03/21 17:33 35.9 57 18 141/62 (88) 97 Room Air 10/03/21 12:39 36.3 50 18 140/65 (90) 97 Room Air 10/03/21 09:00 36.3 18 141/62 (88) 99 Room Air 10/03/21 08:45 36.3 16 83/53 (63) 100 Room Air 10/03/21 08:30 36.4 16 116/65 (82) 98 Room Air 10/03/21 08:15 56 18 108/59 (75) 98 Room Air 10/03/21 08:13 36.3 16 112/54 (73) 96 Room Air 10/03/21 08:13 36.3 68 16 112/54 (73) 96 Room Air I & O 10/04/21 07:00 Intake Total 5200 ml Output Total 1250 ml Balance 3950 ml Vital signs are stable. Patient is afebrile. The abdomen is benign. The surgical incision is clean and dry. Extremities show no clubbing or cyanosis. There is no Homans' sign. Pelvic exam was deferred Assessment and plan Postoperative day #1 doing well plan is for routine convalescent care GUILLERMINA SHELLEY MD Oct 04, 2021 08:02
[2021-10-04] MEDS: DOCUSATE SODIUM 100 MG (COLACE) CAP PO SCH ×2 (09:05→20:54)
[2021-10-04 09:07] VITALS: BP 141/65
[2021-10-04 12:33] VITALS: BP 136/64
--- NOTE | 2021-10-04 13:07 | Anesthesia-Regional Post-Op ---
Regional Patient Condition Mental Status: Alert, Oriented x3 Circulation: Same as Pre-Op Headache: Absent Sensation: Full Recovery Motor Block: Absent Post Op Complications Complications None Follow Up Care/Instructions Patient Instructions None needed. Anesthesia/Patient Condition Patient is doing well, no complaints, stable vital signs, no apparent adverse anesthesia problems. No complications reported per nursing. FAVIO SANTOS CRNA Oct 04, 2021 13:07
[2021-10-04 18:45] VITALS: BP 125/60
[2021-10-05 00:50] VITALS: BP 132/63
[2021-10-05] MEDS: IBUPROFEN 800 MG (MOTRIN) TAB PO SCH ×2 (00:50→06:44)
[2021-10-05 06:44] VITALS: BP 122/60
--- NOTE | 2021-10-05 07:13 | Progress Note ---
Standard Progress Note Progress Notes/Assess & Plan Date Seen by a Provider: Oct 05, 2021 Time Seen by a Provider: 07:12 Progress/Assessment & Plan This patient is without complaint. She is ambulating, voiding, tolerating oral intake and has good pain control. She denies headache, denies nausea or vomiting, and denies chest pain. Vital Signs Date Time Temp Pulse Resp B/P (MAP) Pulse Ox O2 Delivery O2 Flow Rate FiO2 10/04/21 04:00 36.0 66 18 132/71 (91) 98 Room Air 10/04/21 01:15 36.0 73 18 127/59 (81) 98 Room Air 10/03/21 20:15 36.3 64 18 129/61 (83) 96 Room Air 10/03/21 17:33 35.9 57 18 141/62 (88) 97 Room Air 10/03/21 12:39 36.3 50 18 140/65 (90) 97 Room Air 10/03/21 09:00 36.3 18 141/62 (88) 99 Room Air 10/03/21 08:45 36.3 16 83/53 (63) 100 Room Air 10/03/21 08:30 36.4 16 116/65 (82) 98 Room Air 10/03/21 08:15 56 18 108/59 (75) 98 Room Air 10/03/21 08:13 36.3 16 112/54 (73) 96 Room Air 10/03/21 08:13 36.3 68 16 112/54 (73) 96 Room Air I & O 10/04/21 07:00 Intake Total 5200 ml Output Total 1250 ml Balance 3950 ml Vital signs are stable. Patient is afebrile. The abdomen is benign. The surgical incision is clean and dry. Extremities show no clubbing or cyanosis. There is no Homans' sign. Pelvic exam was deferred Assessment and plan Postoperative day #1 doing well plan is for routine convalescent care October 05, 2021 This patient is without complaint. She is ambulating, voiding, tolerating oral intake well and has good pain control. Patient is requesting discharge home. Vital Signs Date Time Temp Pulse Resp B/P (MAP) Pulse Ox O2 Delivery O2 Flow Rate FiO2 10/05/21 06:44 36.0 61 18 122/60 (80) 98 Room Air 10/05/21 00:50 35.9 70 18 132/63 (86) 98 Room Air 10/04/21 19:02 Room Air 10/04/21 18:45 36.0 71 18 125/60 (81) 98 Room Air 10/04/21 12:33 36.0 60 18 136/64 (88) 97 Room Air 10/04/21 09:07 36.2 73 18 141/65 (90) 98 Room Air I & O 10/05/21 07:00 Intake Total 2040 ml Output Total 3250 ml Balance -1210 ml Vital signs are stable. Patient is afebrile. The abdomen is benign. The surgical incision is clean and dry. Extremities show no clubbing or cyanosis. There is no Homans' sign. Assessment and plan Postoperative day #2 status post repeat delivery doing well. Plan is for discharge home with follow-up in clinic Final Diagnosis 39-week repeat delivery GUILLERMINA SHELLEY MD Oct 05, 2021 07:13
[2021-10-05] MEDS: oxyCODONE/APAP 10/325MG (PERCOCET 10) TABLET PO PRN (07:54)
[2021-10-05] MEDS: DOCUSATE SODIUM 100 MG (COLACE) CAP PO SCH (07:54)
[2021-10-05 09:45] VITALS: BP 122/60
== END 2021-10-05 10:20 | disposition home or self-care (01) | DRG 788 ==
LOC: LDRP 05:55
PROVIDERS: ADMIT Obstetrics & Gynecology; ATTEND Obstetrics & Gynecology
PROC: 10D00Z1 Extraction of Products of Conception, Low, Open Approach (ICD-10-PCS; principal; 2021-10-03 07:26)
DX: O34.211 Maternal care for low transverse scar from previous cesarean delivery (principal); Z3A.39 39 weeks gestation of pregnancy; Z37.0 Single live birth
CPT/HCPCS: 36415; 85025; 86850; 86900; 86901; 87081; 94664